=== PATIENT | female | born 1990 | race Caucasian/White ===

== ENCOUNTER 2021-10-17 01:14 | Emergency (ER) | payer OTHER ==
--- OUTSIDE RECORDS SUMMARY | 2021-10-17 01:24 | XMS REPORT | Continuity of Care Document ---
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 ONCE, Stop date: 11/08/16 13:54:00 CDT rocuronium No Route: IV, M emoria (ANES) 11-08 Drug form: l 18:54: INJ, ONCE, Stop date: 11/08/16 13:54:00 CDT propofol No Route: IV, Mem oria (ANES) 11-08 Drug form: l 18:54: INJ, ONCE, Stop date: 11/08/16 13:54:00 CDT ondansetron No Route: IV, Memoria (ANES) 11-08 Drug form: l 18:54: INJ, ONCE, Stop date: 11/08/16 13:54:00 CDT dexamethaso No Route: IV, Memoria ne (ANES) 11-08 Drug form: l 18:54: INJ, ONCE, Stop date: 11/08/16 13:54:00 CDT lidocaine No Route: IV, Me moria (ANES) 11-08 Drug form: l 18:54: INJ, ONCE, Stop date: 11/08/16 13:54:00 CDT famotidine No Route: IV, M emoria (ANES) 11-08 Drug form: l 18:54: INJ, ONCE, Stop date: 11/08/16 13:54:00 CDT neostigmine No Route: IV, Memoria (ANES) 11-08 Drug form: l 18:54: INJ, ONCE, Stop date: 11/08/16 13:54:00 CDT glycopyrrol No Route: IV, Memoria ate (ANES) 11-08 Drug form: l 18:54: INJ, ONCE, Stop date: 11/08/16 13:54:00 CDT ketOROLAC No IV, ONCE Mitul fernando (ANES) 11-08 l 18:54: 00 ceFAZolin No Route: IV, Me moria (ANES) 11-08 Drug form: l 18:50: INJ, ONCE, Stop date: 11/08/16 13:50:00 CDT Dilaudid No Route: IV, Mem oria (ANES) 11-08 Drug form: l 18:50: INJ, ONCE, Stop date: 11/08/16 13:50:00 CDT Insulin, No Notes: Memoria Aspart, 11-08 Roll in l Human 18:41: palms of hands gently; Do not shake vigorously . (Same as: NovoLOG) "single patient use only" WASTE: F/P - Black; E - Municipal Trash Bin Stable for 28 days at room temperatur e. Expires in days from ____Date Racepinephr No Notes: Mitul fernando ine 11-08 (racepinep l 18:41: hrine Teo 00 *2.25% inh 0.5ml SOLN) (Same as:S2) Ondansetron No Notes: Mitul fernando - (Same as: l 18:41: Zofran) MEDICATION WASTE Product Size: 4 mg Product Wasted: ___ mg Dexamethaso No Notes: Mitul fernando ne - Concentrat l 18:41: ion: Teo 00 4mg/ml Promethazin No 6.25 mg, Me moria e -04 25 mL, l 18:41: Route: [place] 00 IVPB, Drug form: SOLN, ONCE, Dosing Weight 113, kg, PRN Nausea & Vomiting, Start date: 11/08/16 13:41:00 CDT Albuterol No Notes: SEE Me moria 0.83 MG/ML - RT l Inhalant 18:41: DOCUMENTAT Her aldrich Solution 00 ION (Same as: Proventil) Diphenhydra No Notes: Mitul fernando mine 11-08 (Same as: l 18:41: Benadryl) Hydromorpho No Notes: Mitul fernando ne - Same as: l 18:41: Dilaudid Oxycodone No Notes: Memori a - (Same as: l 18:41: Roxicodone ) Flumazenil No Notes: Memor ia -04 (Same as: l 18:41: Romazicon) Ephedrine No Notes: Memori a 4-04 final l 18:41: concentrat Teo 00 ion 5 mg/mL Naloxone No Notes: Memoria 4-04 Same as l 18:41: Narcan Atropine No Notes: Mem oria - MEDICATION l 18:41: WASTE Teo 00 Product Size: 0.4 mg Product Wasted: ___ mg Acetaminoph No Notes: Max Memoria en 11-08 acetaminop l 18:41: hen 4000 [place] 00 mg/day (4 gm/day). (Same as: Tylenol Extra Strength) Morphine No Notes: Memoria 11-08 (Same l 18:41: as:MORPhin Teo 00 e Sulfate) Hydralazine No Notes: Mitul fernando 11-08 (Same as: l 18:41: Apresoline [place] 00 ) Push over 5 minutes Labetalol No 10 mg, 2 Mitul fernando -04 mL, Route: l 18:41: IVP, Drug form: INJ, Q5Min, Dosing Weight 113, kg, PRN Elevated BP, Start date: 11/08/16 13:41:00 CDT, Duration: 5 doses or times, Stop date: Limited # of times Metoprolol No Notes: Memor ia 11-08 (Same as: l 18:41: Lopressor) [place] Push over 2 minutes LR 1000 mL No Route: IV, M emoria INJ (ANES) 11-08 Total l 17:51: Volume: Teo 00 1,000, Start date: 11/08/16 12:51:00 CDT, Stop date: 11/08/16 13:51:00 CDT Lidocaine No 5 mg, Memoria Hydrochlori 11-08 Route: l de 10 MG/ML 16:21: INTRADERM, [place] Injectable Dosing Solution Weight 113, kg, ONCE, Start date: 11/08/16 11:21:00 CDT, Stop date: 11/08/16 11:21:00 CDT Lactated No 1,000 mL, Mitul fernando Ringers 11-08 Rate: 25, l 1,000 mL 16:21: Route: IV, Her aldrich 00 Dosing Weight 113 kg, Total Volume: 1,000, Start date: 11/08/16 11:21:00 CDT, Duration: 30 day, Stop date: 12/08/16 11:20:00 CDT Cefazolin Yes Notes: Memori a 11-08 Same as: l 15:41: Ancef [place] Immunizations Ordered Immunization Filled Immunization Date Status Commen ts Source Name Name influenza virus 2016-09-20 Completed [facility] vaccine, inactivated 16:19:00 Herm gricelda influenza virus 2012-09-23 Completed [facility] vaccine, inactivated 00:29:00 Herm gricelda Vital Signs Vital Name Observation Time Observation Value Comments Source Heart Rate 2020-11-25 08:37:00 [facility] [place] Respitory Rate 2020-11-25 08:37:00 Memori al [place] Systolic (mm Hg) 2020-11-25 08:37:00 Mitul rial [place] Diastolic (mm Hg) 2020-11-25 08:37:00 Mem orial [place] Temperature Oral (F) 2020-11-25 08:37:00 98.0 F [facility] [place] Heart Rate 2020-11-25 05:36:00 [facility] [place] Respitory Rate 2020-11-25 05:36:00 Memori al [place] Systolic (mm Hg) 2020-11-25 05:36:00 Mitul rial [place] Diastolic (mm Hg) 2020-11-25 05:36:00 Mem orial [place] Weight 2020-11-25 02:54:00 [facility] [place] Systolic (mm Hg) 2020-11-25 02:54:00 Mitul rial Toe Diastolic (mm Hg) 2020-11-25 02:54:00 Mem orial [place] Heart Rate 2020-11-25 02:54:00 [facility] [place] Respitory Rate 2020-11-25 02:54:00 Memori al [place] Heart Rate 2020-06-28 07:11:00 [facility] [place] Respitory Rate 2020-06-28 07:11:00 Memori al [place] Systolic (mm Hg) 2020-06-28 07:11:00 Mitul rial [place] Diastolic (mm Hg) 2020-06-28 07:11:00 Mem orial [place] Weight 2020-06-28 03:08:00 [facility] [place] Systolic (mm Hg) 2020-06-28 03:08:00 Mitul rial Teo Diastolic (mm Hg) 2020-06-28 03:08:00 Mem orial [place] Heart Rate 2020-06-28 03:08:00 [facility] [place] Respitory Rate 2020-06-28 03:08:00 Memori al [place] Heart Rate 2020-06-14 03:39:00 [facility] [place] Respitory Rate 2020-06-14 03:39:00 Memori al [place] Systolic (mm Hg) 2020-06-14 03:39:00 Mitul rial Teo Diastolic (mm Hg) 2020-06-14 03:39:00 Mem orial [place] Weight 2020-06-14 00:15:00 [facility] [place] Systolic (mm Hg) 2020-06-14 00:15:00 Mitul rial [place] Diastolic (mm Hg) 2020-06-14 00:15:00 Mem orial [place] Heart Rate 2020-06-14 00:15:00 [facility] [place] Respitory Rate 2020-06-14 00:15:00 Memori al [place] Respitory Rate 2019-04-15 11:20:00 Memori al [place] Systolic (mm Hg) 2019-04-15 11:20:00 Mitul rial [place] Diastolic (mm Hg) 2019-04-15 11:20:00 Mem orial [place] Respitory Rate 2019-04-15 10:12:00 Memori al [place] Systolic (mm Hg) 2019-04-15 10:12:00 Mitul rial Te[place] Diastolic (mm Hg) 2019-04-15 10:12:00 Mem orial [place] Systolic (mm Hg) 2019-04-15 03:54:00 Mitul rial Teo Diastolic (mm Hg) 2019-04-15 03:54:00 Mem orial [place] Heart Rate 2019-04-15 03:54:00 [facility] [place] Respitory Rate 2019-04-15 03:54:00 Memori al [place] Weight 2019-04-15 03:54:00 [facility] [place] Height 2019-03-10 21:33:00 172.72 cm [facility] BMI Calculated 2019-03-10 21:33:00 Memori al [place] Weight 2019-03-10 21:33:00 [facility] [place] Systolic (mm Hg) 2019-03-10 21:33:00 Mitul rial Teo Diastolic (mm Hg) 2019-03-10 21:33:00 Mem orial [place] Respitory Rate 2019-03-10 21:33:00 Memori al [place] Heart Rate 2019-03-10 21:33:00 [facility] [place] Weight 2019-03-06 05:36:00 [facility] [place] BMI Calculated 2019-03-06 05:36:00 Memori al [place] Height 2019-03-06 05:36:00 172.72 cm [facility] [place] Respitory Rate 2019-03-06 05:36:00 Memori al [place] Heart Rate 2019-03-06 05:36:00 [facility] [place] Systolic (mm Hg) 2019-03-06 05:36:00 Mitul rial [place] Diastolic (mm Hg) 2019-03-06 05:36:00 Mem orial [place] Temperature Oral (F) 2019-03-04 14:23:00 98.3 F [facility] [place] Heart Rate 2019-03-04 14:23:00 [facility] [place] Systolic (mm Hg) 2019-03-04 14:23:00 Mitul rial [place] Diastolic (mm Hg) 2019-03-04 14:23:00 Mem orial [place] Respitory Rate 2019-03-04 14:23:00 Memori al [place] Systolic (mm Hg) 2019-03-04 11:00:00 Mitul rial Teo Diastolic (mm Hg) 2019-03-04 11:00:00 Mem orial [place] Heart Rate 2019-03-04 11:00:00 [facility] [place] Systolic (mm Hg) 2019-03-04 09:38:00 Mitul rial [place] Diastolic (mm Hg) 2019-03-04 09:38:00 Mem orial [place] Heart Rate 2019-03-04 09:38:00 [facility] [place] Temperature Oral (F) 2019-03-04 09:38:00 98.7 F [facility] [place] Temperature Oral (F) 2019-03-04 05:07:00 99.0 F [facility] [place] Respitory Rate 2019-03-03 20:54:00 Memori al [place] Respitory Rate 2019-03-03 19:27:00 Memori al [place] Weight 2019-02-27 09:59:00 [facility] [place] BMI Calculated 2019-02-27 09:59:00 Memori al [place] Height 2019-02-27 09:59:00 172.72 cm [facility] [place] BMI Calculated 2019-02-27 04:18:00 Memori al [place] Weight 2019-02-27 04:18:00 [facility] [place] Height 2019-02-27 04:18:00 172.72 cm [facility] [place] Systolic (mm Hg) 2018-10-29 08:22:00 Mitul rial [place] Diastolic (mm Hg) 2018-10-29 08:22:00 Mem orial [place] Temperature Oral (F) 2018-10-29 08:22:00 97.8 F [facility] [place] Systolic (mm Hg) 2018-10-29 05:30:00 Mitul rial Teo Diastolic (mm Hg) 2018-10-29 05:30:00 Mem orial [place] Weight 2018-10-29 00:14:00 [facility] [place] Height 2018-10-29 00:14:00 172.72 cm [facility] [place] BMI Calculated 2018-10-29 00:14:00 Memori al [place] Respitory Rate 2018-10-29 00:14:00 Memori al [place] Heart Rate 2018-10-29 00:14:00 [facility] [place] Systolic (mm Hg) 2018-10-29 00:14:00 Mitul rial [place] Diastolic (mm Hg) 2018-10-29 00:14:00 Mem orial [place] Systolic (mm Hg) 2018-08-29 09:37:00 Mitul rial [place] Diastolic (mm Hg) 2018-08-29 09:37:00 Mem orial [place] Respitory Rate 2018-08-29 09:37:00 Memori al [place] Respitory Rate 2018-08-29 08:02:00 Memori al [place] Systolic (mm Hg) 2018-08-29 08:02:00 Mitul rial [place] Diastolic (mm Hg) 2018-08-29 08:02:00 Mem orial [place] Systolic (mm Hg) 2018-08-29 05:45:00 Mitul rial [place] Diastolic (mm Hg) 2018-08-29 05:45:00 Mem orial [place] Respitory Rate 2018-08-29 05:45:00 Memori al [place] Temperature Oral (F) 2018-08-29 04:57:00 98.1 F [facility] [place] Heart Rate 2018-08-29 04:57:00 [facility] [place] Height 2018-08-29 04:57:00 172.72 cm [facility] [place] Weight 2018-08-29 04:57:00 [facility] [place] BMI Calculated 2018-08-29 04:57:00 Memori al [place] Weight 2018-02-22 20:43:00 [facility] [place] BMI Calculated 2018-02-22 20:43:00 Memori al [place] Height 2018-02-22 20:43:00 172.72 cm [facility] [place] Systolic (mm Hg) 2018-02-22 20:43:00 Mitul rial [place] Diastolic (mm Hg) 2018-02-22 20:43:00 Mem orial [place] Heart Rate 2018-02-22 20:43:00 [facility] [place] Respitory Rate 2018-02-22 20:43:00 Memori al [place] Temperature Oral (F) 2017-08-05 07:39:00 98.4 F [facility] [place] Respitory Rate 2017-08-05 07:39:00 Memori al [place] Systolic (mm Hg) 2017-08-05 07:39:00 Mitul rial Teo Diastolic (mm Hg) 2017-08-05 07:39:00 Mem orial [place] Heart Rate 2017-08-05 07:39:00 [facility] [place] Height 2017-08-05 04:14:00 172.72 cm [facility] [place] Temperature Oral (F) 2017-08-05 04:14:00 98.3 F [facility] [place] BMI Calculated 2017-08-05 04:14:00 Mem[facility] al [place] Weight 2017-08-05 04:14:00 [facility] [place] Heart Rate 2017-08-05 04:14:00 [facility] [place] Respitory Rate 2017-08-05 04:14:00 Memori al [place] Systolic (mm Hg) 2017-08-05 04:14:00 Mitul rial [place] Diastolic (mm Hg) 2017-08-05 04:14:00 Mem orial [place] Systolic (mm Hg) 2017-02-23 01:09:00 Mitul rial [place] Diastolic (mm Hg) 2017-02-23 01:09:00 Mem orial [place] Respitory Rate 2017-02-23 01:09:00 Memori al [place] Heart Rate 2017-02-23 01:09:00 [facility] [place] BMI Calculated 2017-02-22 23:13:00 Mem[facility] al [place] Weight 2017-02-22 23:13:00 [facility] [place] Systolic (mm Hg) 2017-02-22 23:13:00 Mitul rial [place] Diastolic (mm Hg) 2017-02-22 23:13:00 Mem orial [place] Heart Rate 2017-02-22 23:13:00 [facility] [place] Respitory Rate 2017-02-22 23:13:00 Memori al [place] Height 2017-02-22 23:13:00 172.72 cm [facility] [place] Systolic (mm Hg) 2016-11-08 20:50:00 Mitul rial [place] Diastolic (mm Hg) 2016-11-08 20:50:00 Mem orial [place] Respitory Rate 2016-11-08 20:50:00 Memori al [place] Systolic (mm Hg) 2016-11-08 20:40:00 Mitul rial [place] Diastolic (mm Hg) 2016-11-08 20:40:00 Mem orial [place] Respitory Rate 2016-11-08 20:40:00 Memori al [place] Systolic (mm Hg) 2016-11-08 20:30:00 Mitul rial [place] Diastolic (mm Hg) 2016-11-08 20:30:00 Mem orial [place] Respitory Rate 2016-11-08 20:30:00 Memori al Te[place] Weight 2016-11-04 17:45:00 [facility] Teo BMI Calculated 2016-11-04 17:45:00 Memori al [place] Height 2016-11-04 17:45:00 172.72 cm [facility] Procedures Procedure Date / Time Performed Performing Clinician [facility] e section [facility] Hugh n Tub[facility] Cholecyst[facility] [place] Plan of Care Planned Activity Planned Date Details Comments Source Future Scheduled 2021-06-16 COVID-19 VACCINE (1) Met [facility] Test 06:57:56 [code = COVID-19 VACCINE (1)] Future Scheduled 2021-06-16 [facility] Test 06:57:56 malignant neoplasm of cervix (procedure) [code = 603205419] Future Scheduled 2021-06-16 [facility]FLUENZA VACCINE [facility] Test 06:57:56 [code = INFLUENZA VACCINE] Future Scheduled 2021-04-07 INFLUENZA VACCINE (#1) [facility] Test 00:[facility]:00 [code = INFLUENZA Medical Ce nter VACCINE (#1)] Future Scheduled 2020-08-[address] [facility] - Test 00:00:00 (12+) [code = Medical Center DEPRESSION SCREENING (12+)] Future Scheduled 2020-04-07 INFLUENZA VACCINE (#1) [facility] - Test 00:00:00 [code = INFLUENZA Medical Ce nter VACCINE (#1)] Future Scheduled [address] [facility] - Test 00:00:00 malignant neoplasm of Medica l Center cervix (procedure) [code = 040653622] Future Scheduled [address] [facility] - Test 00:00:00 malignant neoplasm of Medica l Center cervix (procedure) [code = 331969554] Future Scheduled [address] [facility] - Test 00:00:00 (procedure) [code = Medical Center 56594299] Future Scheduled [address] [facility] - Test 00:00:00 (procedure) [code = Medical Center 27070270] Future Scheduled 2008 DTAP/TDAP/TD VACCINES [facility] Test 00:00:00 (1 - Tdap) [code = Medical C enter DTAP/TDAP/TD VACCINES (1 - Tdap)] Future Scheduled 2007-12-27 HEPATITIS C SCREENING [facility] - Test 00:00:00 [code = HEPATITIS C Medical Center SCREENING] Future Scheduled 2001 COVID-19 VACCINE (1) [facility] - Test 00:00:00 [code = COVID-[address] VACCINE (1)] Future Scheduled 1995-12-[address] [facility] - Test 00:00:00 0-64 YRS (1 of 2 - Medical C enter PPSV23) [code = PNEUMOCOCCAL VACCINE 0-64 YRS (1 of 2 - PPSV23)] Future Scheduled 1995-12-[address] [facility] - Test 00:00:00 0-64 YRS (1 of 1 - Medical C enter PPSV23) [code = PNEUMOCOCCAL VACCINE 0-64 YRS (1 of 1 - PPSV23)] Encounters Start End Encounter Admission Attending Care Care Encounter Source Date/Time Date/Time Type Type Clinicians Facility Department ID 2021-05-12 Inpatient HCATB ALEXA [id number] [facility] 07:53:00 [id number] [facility] [place] 2020-04-16 Inpatient HCACR ALEXA [id number] [facility] 09:21:00 [id number] [facility] 2021-05-12 2021-05-12 Emergency EM Miko CASPER LIU [id number] [facility] 07:53:00 08:54:[address] [facility] are [place] 2021-04-03 2021-04-03 Emergency EM CASPER Alberto ALEXA [id number] [facility] 01:22:00 04:39:00 Marli [id number] [facility] [place] 2020-11-25 2020-11-25 Emergency nullFlavo [facility] [id number] Memoria 02:22:15 08:38:00 antonio Bruce The 12 [facility] 2020-11-24 2020-11-25 Emergency E BEAUCHAMP, MHTW MHTW [id number] MHTW 21:22:00 03:38:00 ALEXIS 2020-06-28 2020-06-28 Emergency nullFlavo [facility] [id number] Memoria 02:59:03 12:22:00 antonio Bruce The 11 [facility] 2020-06-27 2020-06-28 Emergency E ANI, MHTW MHTW [id number] MHTW 20:59:00 06:22:00 ALEXANDRE 2020-06-14 2020-06-14 Emergency [facility] [id number] Memoria 00:09:53 03:41:00 antonio Bruce The 10 [facility] 2019-04-15 2019-04-15 Emergency [facility]Fl[facility] [id number] Memoria 03:40:37 12:21:00 antonio Bruce The 09 [facility] 2019-04-14 2019-04-14 Emergency E MHTW MHTW [id number] MHTW 22:40:00 22:40:00 2019-03-10 2019-03-10 Emergency [facility]Flavo [facility] [id number] Memoria 21:16:54 22:49:00 antonio Bruce The 08 [facility] 2019-03-10 2019-03-10 Emergency E MHTW MHTW [id number] MHTW 16:16:00 16:16:00 2019-03-06 2019-03-06 Emergency [facility]Flavo [facility] [id number] Memoria 05:34:40 05:58:00 antonio Bruce The 07 [facility] 2019-03-06 2019-03-06 Emergency E MHTW MHTW [id number] MHTW 00:34:00 00:34:00 2019-02-27 2019-03-04 Inpatient [facility] [id number] Memoria 04:16:52 17:54:00 antonio Bruce The [facility] 2019-02-27 2019-02-27 Inpatient E MHTW MED [id number] MHTW 03:31:00 03:31:00 2018-10-29 2018-10-29 Emergency [facility] [id number] [facility]oria 00:03:00 08:31:00 antonio Bruce The [facility] 2018-08-29 2018-08-29 Emergency [facility] [id number] [facility]oria 04:55:00 09:40:00 antonio Bruce The [facility] 2018-02-22 2018-02-22 Emergency [facility] [id number] Memoria 20:43:00 21:26:00 antonio Bruce The [facility] 2017-08-05 2017-08-05 Emergency [facility]Fl[facility] [id number] Memoria 04:03:00 07:56:00 antonio Bruce The [facility] 2017-02-22 2017-02-23 Emergency [facility] [id number] Memoria 23:10:00 01:11:00 antonio Bruce The [facility] 2016-11-08 2016-11-08 Day [facility]Flavo [facility] [id number] [facility]oria 16:04:00 21:45:00 Surgery antonio Bruce The [facility] Results Test Description Test Time Test Comments Results Result [facility] e Comments - XR ELBOW 3 + V 2021-05-12 RT 08:47:00 [facility] SMALL : 1990 Sex: F Juan tient Name: NINI SMALL Unit No: [id number] EXAMS: CPT: [id number] XR ELBOW 3 + V RT [id number] EXAM: 4 VIEWS RIGHT ELBOW HISTORY: 30-year-old female with right elbow pain. COMPARISON: None FINDINGS: No fracture identified. Alignment is anatomic. No significant degenerative findings. No significant soft tissue abnormality. No significant joint effusion. IMPRESSION: No acute findings of the right elbow. at 0847 Reported and signed by: KENNETH NOEL DO CC: Iliana Crouch MD Technologist: Nasir Banks Fluoro Time: DAP (Gy m2): Air Kerma (mGy): Trscr Dt/Tm: 05/12/2021 (0847) by:[email or web address] Orig Print D/T: S: 05/12/2021 (0850) BATCH NO: N/A Name: NINI SMALL [facility] [place] Phys: Iliana Casas [address] : 1990 Age: 30 Sex: F [place] Loc: T.ERS Exam Date: 05/12/2021 Status: REG ER PH: FAX: PAGE 1 Signed Report Covid 19 InHouse NTX 2021-04-05 08:57:00 Test Item Value Reference Range Interpretation Comme nts Covid 19 InHouse NTX (test Positive Negative A C ritical Value reported toFirst Name: code = [id number]) Emily carlin Name: DINESH Martinez/ERSRESULTS READ BACK AND V ERIFIEDby INFCE, on 04/04/21, @ 184 0.by [email or web address], on 04/05/2021 @ 08 56 This test was performed using the [employer] SmartTM COVID-19 PCRass ay. This test was developed and i ts performancechar acteristics were determined by [facility]. Thi s test has notbeen FDA cleared or appr ankush. This test is authorized by t heFDA under Emergency Use Authorizati on(EUA). The EUA willremain in e ffect unless it is terminated or r evoked by FDA . Testing parameters have not been validated for screeningasympt omatic patients. This test was valida lai according to the FDA's guidanced ocument "Policy for Diagnostics elisabeth ting in LaboratoriesCer tified to Perform High Complexity Test ing under CLIA". First test? YesEmployed in Healthcare? NoSymptomatic as defined by CDC? YesDate of Symptom Onset: [id number] due to COVID? NoIn ICU due to COVID? NoResident in a congregate care setting? No? NoAge at collection: [id number] 05:41:00 Test Item Value Reference Range Interpretation Comments Glucose Lvl (test code = Glucose Lvl) 119 70-99 [facility] [id number] 05:41:00 Test Item Value Reference Range Interpretation Comments BUN (test code = BUN) 12 7-22 [facility] [id number] 05:41:00 Test Item Value Reference Range Interpretation Comments Creatinine Lvl (test code = Creatinine 0.82 0.50-1.40 Lvl) [facility] [id number] 05:41:00 Test Item Value Reference Range Interpretation Comments Sodium Lvl (test code = Sodium Lvl) 139 135-145 [facility] [id number] 05:41:00 Test Item Value Reference Range Interpretation Comments Potassium Lvl (test code = Potassium 3.9 3.5-5.1 Lvl) [facility] [id number] 05:41:00 Test Item Value Reference Range Interpretation Comments Chloride Lvl (test code = Chloride Lvl) 110 95-109 [facility] [id number] 05:41:00 Test Item Value Reference Range Interpretation Comments CO2 (test code = CO2) 23 24-32 [facility] [id number] 05:41:00 Test Item Value Reference Range Interpretation Comments Calcium Lvl (test code = Calcium Lvl) 8.5 8.5-10.5 [facility] [id number] 05:41:00 Test Item Value Reference Range Interpretation Comments Total Protein (test code = Total 7.2 6.4-8.4 Protein) [place] [id number] 05:41:00 Test Item Value Reference Range Interpretation Comments Albumin Lvl (test code = Albumin Lvl) 3.6 3.5-5.0 [place] [id number] 05:41:00 Test Item Value Reference Range Interpretation Comments ALT (test code = ALT) 24 See_Comment [Auto mated message] The system which ge nerated this result transmit lai reference range : <=65. The reference range was not used to interpr et this result as sam l/abnormal. [place] [id number] 05:41:00 Test Item Value Reference Range Interpretation Comments AST (test code = AST) 14 See_Comment [Auto mated message] The system which ge nerated this result transmit lai reference range : <=37. The reference range was not used to interpr et this result as sam l/abnormal. [place] [id number] 05:41:00 Test Item Value Reference Range Interpretation Comments Alk Phos (test code = Alk Phos) 89 39-136 [place] [id number] 05:41:00 Test Item Value Reference Range Interpretation Comments Bili Total (test code = Bili Total) 0.2 0.2-1.3 [place] [id number] 05:41:00 Test Item Value Reference Range Interpretation Comments AGAP (test code = AGAP) 9.9 10.0-20.0 [place] [id number] 05:41:00 Test Item Value Reference Range Interpretation Comments B/C Ratio (test code = B/C Ratio) 15 1 6-25 [place] 478251-04-21 05:41:00 Test Item Value Reference Range Interpretation Comments Globulin (test code = Globulin) 3.6 2.7-4.2 [place] 478251-04-21 05:41:00 Test Item Value Reference Range Interpretation Comments A/G Ratio (test code = A/G Ratio) 1.0 1 0.7-1.6 [place] 478251-04-21 05:41:00 Test Item Value Reference Range Interpretation Comments eGFR (test code = eGFR) 96 [id number] 05:41:00 Test Item Value Reference Range Interpretation Comments WBC (test code = WBC) 11.8 3.7-10.4 [facility]27 05:41:00 Test Item Value Reference Range Interpretation Comments RBC (test code = RBC) 4.66 4.20-5.40 [place] 567271-04-21 05:41:00 Test Item Value Reference Range Interpretation Comments Hgb (test code = Hgb) 12.9 12.0-16.0 [place] 567271-04-21 05:41:00 Test Item Value Reference Range Interpretation Comments Hct (test code = Hct) 39.9 36.0-48.0 [facility]AwtfcwvKAQULAFURS5323-87-28 05:41:00 Test Item Value Reference Range Interpretation Comments MCV (test code = MCV) 85.8 80.0-98.0 [place] 567271-04-21 05:41:00 Test Item Value Reference Range Interpretation Comments MCH (test code = MCH) 27.7 pg 27.0-31.0 [facility] HospitalNpvtfrrUXHJECLRYJ9970-32-68 05:41:00 Test Item Value Reference Range Interpretation Comments MCHC (test code = MCHC) 32.3 32.0-36.0 [facility] HospitalRonmbcfVGTXSMQWXX3995-11-38 05:41:00 Test Item Value Reference Range Interpretation Comments RDW (test code = RDW) 14.1 11.5-14.5 [facility] HospitalIxwxgmyMBQLUAAPKN8906-12-96 05:41:00 Test Item Value Reference Range Interpretation Comments Platelet (test code = Platelet) 311 133-450 [facility] HospitalMlijzcfRMWLYHYTTW2286-01-72 05:41:00 Test Item Value Reference Range Interpretation Comments MPV (test code = MPV) 9.1 7.4-10.4 [place] 567271-04-21 05:41:00 Test Item Value Reference Range Interpretation Comments Segs (test code = Segs) 55.1 45.0-75.0 [facility] HospitalTndpjebRXGCZZILKV3342-92-53 05:41:00 Test Item Value Reference Range Interpretation Comments Lymphocytes (test code = Lymphocytes) 36.6 20.0-40.0 [facility] HospitalQwwnfdhJVVODZMBMO6514-56-08 05:41:00 Test Item Value Reference Range Interpretation Comments Monocytes (test code = Monocytes) 5.0 2.0-12.0 [place] 567271-04-21 05:41:00 Test Item Value Reference Range Interpretation Comments Eosinophils (test code = 2.6 See_Comment [A utomated message] The Eosinophils) system which ge nerated this result tra nsmitted reference range : <=4.0. The reference r andres was not used to int erpret this result as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 code = TRACE >0 /HPF NONE-FEW BACU) UA SQUAMOUS CELLS (test RARE >0 /HPF NONE-SQepi code = SQU) UA MUCUS (test code = RARE /LPF NONE MUCU) UR HCG [id number] 21:16:00 Test Item Value Reference Range Interpretation Comments UR HCG QUAL (test NEGATIVE NEG Very dilut e urines with a code = HCGQLU) low specific gravity may notcontain repr esentative levels of hCG. URINALYSIS [id number] 21:12:00 Test Item Value Reference Range Interpretation Comments UA COLOR (test code = COLU) DESCRIPT YELLOW UA APPEARANCE (test code = APPU) DESCRIPT CLEAR UA GLUCOSE DIPSTICK (test code = mg/dL (NEG) 0 DGLUU) UA BILIRUBIN DIPSTICK (test code = mg/dL (NEG) 0 BILU) UA KETONE DIPSTICK (test code = mg/dL (NEG) 0 KETU) UA SPECIFIC GRAVITY (test code = SG 1.001-1.035 SGU) UA BLOOD DIPSTICK (test code = NEY) mg/DL (NEG) 0 UA PH DIPSTICK (test code = ALINA) pH UNITS 4.6-8.0 UA PROTEIN DIPSTICK (test code = mg/dL <30 (1+) PROU) UA UROBILINIOGEN DIPSTICK (test mg/dL <2.0 (1+) code = URO) UA NITRITE DIPSTICK (test code = SCREEN NEG DIANA) UA LEUKOCYTE ESTERASE DIPSTICK Leuk/mcL (NEG) 0 (test code = LEUU) UA RBC (test code = RBCU) #RBC/HPF 0-3 UR HCG [id number] 21:12:00 Test Item Value Reference Range Interpretation Comments UR HCG QUAL (test NEGATIVE NEG Very dilut e urines with a code = HCGQLU) low specific gravity may notcontain repr esentative levels of hCG. AG STREP GROUP A (THROAT)2019-04-29 20:56:00 Test Item Value Reference Range Interpretation Comments AG STREP GROUP A NEG SCREEN NEG STREP A NTIGEN (THROAT) (test SCREENING:Ant igen code = STREPA) screening elisabeth t; suggest confirmation by culture.INTERPR ETATION OF STREP ANTIGEN R ESULTS:WHEN STREP GROUP A A NTIGEN IS NOT DETECTED, T HE NEGATIVERESULT DOES NOT RULE OUT THE MD ESENCE OF STREP GROUP A.W HEN STREP GROUP A ANTIGEN IS DETECTED, THE P OSITIVE RESULTIS SIGNIF ICANT. NEGATIVE RESULT S REFLEX A CULTURE. FORNE GATIVE RESULTS A CULTU RE IS IN PROGRESS, RESUL T TO FOLLOW. TOBRAMYCIN:SUSC:PT:ISOLATE:ORDQN:[id number] 07:12:00 Test Item Value Reference Range Interpretation Comments Culture: Urine (test >100,000 CFU/mL code = Culture: Escherichia coli <10,000 Urine) CFU/mL [facility]USC:PT:ISOLATE:ORDQN:[id number] 07:12:00 Test Item Value Reference Range Interpretation Comments Escherichia coli (test code Escherichia coli = Escherichia coli) [facility] AND [id number] 07:12:00 Test Item Value Reference Range Interpretation Comments UA Turbidity (test code = Clear (04/15/19 2:12 UA Turbidity) AM) [facility] AND [id number] 07:12:00 Test Item Value Reference Range Interpretation Comments UA Spec Grav (test code = UA Spec 1.028 1 Grav) [facility] AND [id number] 07:12:00 Test Item Value Reference Range Interpretation Comments UA pH (test code = UA pH) 6.0 1 5.0-8.0 [facility] AND [id number] 07:12:00 Test Item Value Reference Range Interpretation Comments UA Protein (test code = UA Negative mg/dL Protein) [facility] AND [id number] 07:12:00 Test Item Value Reference Range Interpretation Comments UA Glucose (test code = UA Negative mg/dL Glucose) [facility] AND [id number] 07:12:00 Test Item Value Reference Range Interpretation Comments UA Ketones (test code = UA Negative mg/dL Ketones) [facility] AND [id number] 07:12:00 Test Item Value Reference Range Interpretation Comments UA Bili (test code = Negative *NA*(04/15/19 UA Bili) 2:12 AM) [facility] AND [id number] 07:12:00 Test Item Value Reference Range Interpretation Comments UA Blood (test code = Small *ABN*(04/15/19 UA Blood) 2:12 AM) [facility] AND [id number] 07:12:00 Test Item Value Reference Range Interpretation Comments UA Nitrite (test code Negative (04/15/19 2:12 = UA Nitrite) AM) [facility] AND [id number] 07:12:00 Test Item Value Reference Range Interpretation Comments UA Leuk Est (test code Small *ABN*(04/15/19 2:12 = UA Leuk Est) AM) [facility] AND [id number] 07:12:00 Test Item Value Reference Range Interpretation Comments UA Sq Epi (test code = UA Sq Occasional /LPF Epi) [facility] AND [id number] 07:12:00 Test Item Value Reference Range Interpretation Comments UA WBC (test code = 25 See_Comment [Automa lai message] The UA WBC) system which ge nerated this result transmit lai reference range : <=5. The reference range was not used to interpr et this result as sam l/abnormal. [facility] AND [id number] 07:12:00 Test Item Value Reference Range Interpretation Comments UA RBC (test code = 19 See_Comment [Automa lai message] The UA RBC) system which ge nerated this result transmit lai reference range : <=2. The reference range was not used to interpr et this result as sam l/abnormal. [facility] AND [id number] 07:12:00 Test Item Value Reference Range Interpretation Comments UA Bacteria (test code = UA Occasional /HPF Bacteria) [facility] AND [id number] 07:12:00 Test Item Value Reference Range Interpretation Comments UA Mucus (test code = UA Mucus) Moderate /LPF [facility] AND [id number] 07:12:00 Test Item Value Reference Range Interpretation Comments UA Color (test code = UA Color) YELLOW [facility] AND [id number] 07:12:00 Test Item Value Reference Range Interpretation Comments UA Urobilinogen (test code = UA <=1.0 mg/dL 0.1-1.0 Urobilinogen) [id number] 04:30:00 Test Item Value Reference Range Interpretation Comments S Preg (test code = S Negative *NA*(04/14/19 Preg) 11:30 PM) [facility]CHE[facility] [id number] 04:20:00 Test Item Value Reference Range Interpretation Comments Glucose Lvl (test code = Glucose Lvl) 92 70-99 [facility]2019-09-09 04:20:00 Test Item Value Reference Range Interpretation Comments BUN (test code = BUN) 9 7-22 [facility]2019-09-09 04:20:00 Test Item Value Reference Range Interpretation Comments Creatinine Lvl (test code = Creatinine 0.84 0.50-1.40 Lvl) [facility]2019-09-09 04:20:00 Test Item Value Reference Range Interpretation Comments Sodium Lvl (test code = Sodium Lvl) 143 135-145 [place] [id number] 04:20:00 Test Item Value Reference Range Interpretation Comments Potassium Lvl (test code = Potassium 4.2 3.5-5.1 Lvl) [facility]2019-09-09 04:20:00 Test Item Value Reference Range Interpretation Comments Chloride Lvl (test code = Chloride Lvl) 111 95-109 [facility]2019-09-09 04:20:00 Test Item Value Reference Range Interpretation Comments CO2 (test code = CO2) 26 24-32 [facility]2019-09-09 04:20:00 Test Item Value Reference Range Interpretation Comments Calcium Lvl (test code = Calcium Lvl) 9.3 8.5-10.5 [facility]2019-09-09 04:20:00 Test Item Value Reference Range Interpretation Comments Total Protein (test code = Total 7.3 6.4-8.4 Protein) [facility]2019-09-09 04:20:00 Test Item Value Reference Range Interpretation Comments Albumin Lvl (test code = Albumin Lvl) 3.8 3.5-5.0 [facility]2019-09-09 04:20:00 Test Item Value Reference Range Interpretation Comments ALT (test code = ALT) 21 See_Comment [Auto mated message] The system which ge nerated this result transmit lai reference range : <=65. The reference range was not used to interpr et this result as sam l/abnormal. [place] [id number] 04:20:00 Test Item Value Reference Range Interpretation Comments AST (test code = AST) 10 See_Comment [Auto mated message] The system which ge nerated this result transmit lai reference range : <=37. The reference range was not used to interpr et this result as sam l/abnormal. [place] 821429-09-09 04:20:00 Test Item Value Reference Range Interpretation Comments Alk Phos (test code = Alk Phos) 94 39-136 [facility]2019-09-09 04:20:00 Test Item Value Reference Range Interpretation Comments Bili Total (test code = Bili Total) 0.2 0.2-1.3 [facility]2019-09-09 04:20:00 Test Item Value Reference Range Interpretation Comments eGFR (test code = eGFR) 94 [facility]2019-09-09 04:20:00 Test Item Value Reference Range Interpretation Comments AGAP (test code = AGAP) 10.2 10.0-20.0 [facility]2019-09-09 04:20:00 Test Item Value Reference Range Interpretation Comments B/C Ratio (test code = B/C Ratio) 11 1 6-25 [facility]2019-09-09 04:20:00 Test Item Value Reference Range Interpretation Comments Globulin (test code = Globulin) 3.5 2.7-4.2 [facility]2019-09-09 04:20:00 Test Item Value Reference Range Interpretation Comments A/G Ratio (test code = A/G Ratio) 1.1 1 0.7-1.6 [place] 821429-09-09 04:20:00 Test Item Value Reference Range Interpretation Comments Lactic Acid Lvl (test code = Lactic 1.3 0.5-2.2 Acid Lvl) [id number] 04:20:00 Test Item Value Reference Range Interpretation Comments WBC (test code = WBC) 13.4 3.7-10.4 [facility] H[id number] 04:20:00 Test Item Value Reference Range Interpretation Comments RBC (test code = RBC) 4.69 4.20-5.40 [facility] [id number] 04:20:00 Test Item Value Reference Range Interpretation Comments Hgb (test code = Hgb) 12.8 12.0-16.0 [facility] H[id number] 04:20:00 Test Item Value Reference Range Interpretation Comments Hct (test code = Hct) 38.9 36.0-48.0 [facility] H[id number] 04:20:00 Test Item Value Reference Range Interpretation Comments MCV (test code = MCV) 83.0 80.0-98.0 [facility] Hospit[id number] 04:20:00 Test Item Value Reference Range Interpretation Comments MCH (test code = MCH) 27.4 pg 27.0-31.0 [facility] H[id number] 04:20:00 Test Item Value Reference Range Interpretation Comments MCHC (test code = MCHC) 32.9 32.0-36.0 [facility] [id number] 04:20:00 Test Item Value Reference Range Interpretation Comments RDW (test code = RDW) 14.6 11.5-14.5 [facility] H[id number] 04:20:00 Test Item Value Reference Range Interpretation Comments Platelet (test code = Platelet) 325 133-450 [facility] H[id number] 04:20:00 Test Item Value Reference Range Interpretation Comments MPV (test code = MPV) 9.0 7.4-10.4 [facility] [id number] 04:20:00 Test Item Value Reference Range Interpretation Comments Segs (test code = Segs) 64.8 45.0-75.0 [facility] [id number] 04:20:00 Test Item Value Reference Range Interpretation Comments Lymphocytes (test code = Lymphocytes) 27.6 20.0-40.0 [facility] H[id number] 04:20:00 Test Item Value Reference Range Interpretation Comments Monocytes (test code = Monocytes) 5.8 2.0-12.0 [facility] Hos[id number] 04:20:00 Test Item Value Reference Range Interpretation Comments Eosinophils (test code = 1.3 See_Comment [A utomated message] The Eosinophils) system which ge nerated this result tra nsmitted reference range : <=4.0. The reference r andres was not used to int erpret this result as normal/abnormal . [facility] Hos[id number] 04:20:00 Test Item Value Reference Range Interpretation Comments Basophils (test code = 0.5 See_Comment [Aut omated message] The Basophils) system which ge nerated this result tra nsmitted reference range : <=1.0. The reference r andres was not used to int erpret this result as normal/abnormal . [facility] HospitalOnevcxzVCZFVSKUXS7454-12-93 04:20:00 Test Item Value Reference Range Interpretation Comments Neutrophils # (test code = Neutrophils 8.7 1.5-8.1 #) [facility] HospitalVfdhgbjSTODZWZJHA0898-41-37 04:20:00 Test Item Value Reference Range Interpretation Comments Lymphocytes # (test code = Lymphocytes 3.7 1.0-5.5 #) [facility] HospitalIcrhynbTSGAWUOMXT9031-13-26 04:20:00 Test Item Value Reference Range Interpretation Comments Monocytes # (test code 0.8 See_Comment [Aut omated message] The = Monocytes #) system which generated this result tra nsmitted reference range : <=0.8. The reference r andres was not used to int erpret this result as normal/abnormal . [facility] HospitalJwxxsjcKZMOSOSOLG4437-82-00 04:20:00 Test Item Value Reference Range Interpretation Comments Eosinophils # (test code 0.2 See_Comment [A utomated message] The = Eosinophils #) system whic h generated this result tra nsmitted reference range : <=0.5. The reference r andres was not used to int erpret this result as normal/abnormal . [facility] HospitalEumymjjSJLAIRLDNQ6671-74-39 04:20:00 Test Item Value Reference Range Interpretation Comments Basophils # (test code 0.1 See_Comment [Aut omated message] The = Basophils #) system which generated this result tra nsmitted reference range : <=0.2. The reference r andres was not used to int erpret this result as normal/abnormal . [facility]2019-07-29 08:18:00 Test Item Value Reference Range Interpretation Comments B/C Ratio (test code = B/C Ratio) 9 1 6-25 [facility]2019-07-29 08:18:00 Test Item Value Reference Range Interpretation Comments Total Protein (test code = Total 6.3 6.4-8.4 Protein) [facility]2019-07-29 08:18:00 Test Item Value Reference Range Interpretation Comments Albumin Lvl (test code = Albumin Lvl) 3.3 3.5-5.0 [facility]2019-07-29 08:18:00 Test Item Value Reference Range Interpretation Comments ALT (test code = ALT) 26 See_Comment [Auto mated message] The system which ge nerated this result transmit lai reference range : <=65. The reference range was not used to interpr et this result as sam l/abnormal. [facility]2019-07-29 08:18:00 Test Item Value Reference Range Interpretation Comments Calcium Lvl (test code = Calcium Lvl) 8.8 8.5-10.5 [facility]2019-07-29 08:18:00 Test Item Value Reference Range Interpretation Comments Bili Total (test code = Bili Total) 0.3 0.2-1.3 [facility]2019-07-29 08:18:00 Test Item Value Reference Range Interpretation Comments AGAP (test code = AGAP) 12.9 10.0-20.0 [facility]2019-07-29 08:18:00 Test Item Value Reference Range Interpretation Comments Alk Phos (test code = Alk Phos) 65 39-136 [facility]2019-07-29 08:18:00 Test Item Value Reference Range Interpretation Comments AST (test code = AST) 7 See_Comment [Auto mated message] The system which ge nerated this result transmit lai reference range : <=37. The reference range was not used to interpr et this result as sam l/abnormal. [facility]2019-07-29 08:18:00 Test Item Value Reference Range Interpretation Comments Globulin (test code = Globulin) 3.0 2.7-4.2 [facility]2019-07-29 08:18:00 Test Item Value Reference Range Interpretation Comments A/G Ratio (test code = A/G Ratio) 1.1 1 0.7-1.6 [facility]2019-07-29 08:18:00 Test Item Value Reference Range Interpretation Comments BUN (test code = BUN) 6 7-22 [facility]2019-07-29 08:18:00 Test Item Value Reference Range Interpretation Comments Glucose Lvl (test code = Glucose Lvl) 80 70-99 [facility]2019-07-29 08:18:00 Test Item Value Reference Range Interpretation Comments CO2 (test code = CO2) 23 24-32 [facility]2019-07-29 08:18:00 Test Item Value Reference Range Interpretation Comments Sodium Lvl (test code = Sodium Lvl) 141 135-145 [facility]2019-07-29 08:18:00 Test Item Value Reference Range Interpretation Comments Chloride Lvl (test code = Chloride Lvl) 109 95-109 [facility]2019-07-29 08:18:00 Test Item Value Reference Range Interpretation Comments Potassium Lvl (test code = Potassium 3.9 3.5-5.1 Lvl) [facility]2019-07-29 08:18:00 Test Item Value Reference Range Interpretation Comments Creatinine Lvl (test code = Creatinine 0.68 0.50-1.40 Lvl) [facility]2019-07-29 08:18:00 Test Item Value Reference Range Interpretation Comments eGFR (test code = eGFR) 119 [facility] HospitalTfpcxovEHDMTRRVBC9499-00-95 08:18:00 Test Item Value Reference Range Interpretation Comments RDW (test code = RDW) 14.2 11.5-14.5 [facility] HospitalVrhoylcCCWDJTHWQT5493-36-20 08:18:00 Test Item Value Reference Range Interpretation Comments MCHC (test code = MCHC) 33.4 32.0-36.0 [facility] HospitalPrqitrpXKYGIEEWEN8740-00-11 08:18:00 Test Item Value Reference Range Interpretation Comments MCH (test code = MCH) 28.0 pg 27.0-31.0 [facility] HospitalAoctzhyDMNSOFCDVV0585-97-31 08:18:00 Test Item Value Reference Range Interpretation Comments MCV (test code = MCV) 83.8 80.0-98.0 [facility] HospitalBwydlktZGZXTQRDWY3644-21-77 08:18:00 Test Item Value Reference Range Interpretation Comments Hct (test code = Hct) 32.4 36.0-48.0 [facility] HospitalXjehlxdCNKXNLUXAE1086-98-59 08:18:00 Test Item Value Reference Range Interpretation Comments MPV (test code = MPV) 10.2 7.4-10.4 [facility] HospitalWinkbowGNOZXVAYFE2003-91-40 08:18:00 Test Item Value Reference Range Interpretation Comments Platelet (test code = Platelet) 243 133-450 [facility] HospitalOosxyyiHWHBBDILGM3261-54-40 08:18:00 Test Item Value Reference Range Interpretation Comments Hgb (test code = Hgb) 10.8 12.0-16.0 [facility] HospitalAsqqroaAXEWNFLGAS3546-10-07 08:18:00 Test Item Value Reference Range Interpretation Comments RBC (test code = RBC) 3.86 4.20-5.40 [facility] HospitalUdafekuPCFMBUGFAL7292-96-37 08:18:00 Test Item Value Reference Range Interpretation Comments WBC (test code = WBC) 12.1 3.7-10.4 [facility] HospitalMtjxobuDDQCIRICEZ4372-44-10 08:18:00 Test Item Value Reference Range Interpretation Comments Eosinophils # (test code 0.1 See_Comment [A utomated message] The = Eosinophils #) system whic h generated this result tra nsmitted reference range : <=0.5. The reference r andres was not used to int erpret this result as normal/abnormal . [facility] HospitalXesacvlUTBQTGFAMC7980-98-72 08:18:00 Test Item Value Reference Range Interpretation Comments Lymphocytes (test code = Lymphocytes) 29.6 20.0-40.0 [facility] HospitalGaitlauJCYRFXFMEC1820-18-97 08:18:00 Test Item Value Reference Range Interpretation Comments Segs (test code = Segs) 62.9 45.0-75.0 [facility] HospitalUdnqxmqIGLQFAVSNP8778-76-78 08:18:00 Test Item Value Reference Range Interpretation Comments Monocytes # (test code 0.8 See_Comment [Aut omated message] The = Monocytes #) system which generated this result tra nsmitted reference range : <=0.8. The reference r andres was not used to int erpret this result as normal/abnormal . [facility] HospitalGsofmwsQRSUNTSTPO1084-25-55 08:18:00 Test Item Value Reference Range Interpretation Comments Lymphocytes # (test code = Lymphocytes 3.6 1.0-5.5 #) [facility] HospitalOumisymXUYWGFRDIM5382-66-77 08:18:00 Test Item Value Reference Range Interpretation Comments Neutrophils # (test code = Neutrophils 7.6 1.5-8.1 #) [facility] HospitalAwhwvelCRQXRPNQDH6987-87-12 08:18:00 Test Item Value Reference Range Interpretation Comments Basophils (test code = 0.4 See_Comment [Aut omated message] The Basophils) system which ge nerated this result tra nsmitted reference range : <=1.0. The reference r andres was not used to int erpret this result as normal/abnormal . [facility] CenterIpmtfokTTPAVHGTQN7726-86-38 08:18:00 Test Item Value Reference Range Interpretation Comments Eosinophils (test code = 0.4 See_Comment [A utomated message] The Eosinophils) system which ge nerated this result tra nsmitted reference range : <=4.0. The reference r andres was not used to int erpret this result as normal/abnormal . [facility] CenterKtxcbxyQIIWHUUJJJ3568-65-58 08:18:00 Test Item Value Reference Range Interpretation Comments Monocytes (test code = Monocytes) 6.7 2.0-12.0 [facility] CenterPxegufhSHELEZOWEL7518-92-83 08:18:00 Test Item Value Reference Range Interpretation Comments C-REACTIVE PROTEIN (test code = 10.9 C-REACTIVE PROTEIN) [facility] AND [id number] 14:56:00 Test Item Value Reference Range Interpretation Comments UA Mucus (test code = UA Mucus) Few /LPF [facility] AND [id number] 14:56:00 Test Item Value Reference Range Interpretation Comments UA WBC (test code = no gt See_Comment [Automa lai message] The UA WBC) system which ge nerated this result transmit lai reference range : <=5. The reference range was not used to interpr et this result as sam l/abnormal. [facility] AND [id number] 14:56:00 Test Item Value Reference Range Interpretation Comments UA Sq Epi (test code = UA Sq Occasional /LPF Epi) [facility] AND [id number] 14:56:00 Test Item Value Reference Range Interpretation Comments UA RBC (test code = 1 See_Comment [Automa lai message] The UA RBC) system which ge nerated this result transmit lai reference range : <=2. The reference range was not used to interpr et this result as sam l/abnormal. [facility] AND [id number] 14:56:00 Test Item Value Reference Range Interpretation Comments UA Color (test code = Yellow *NA*(03/03/19 UA Color) 9:56 AM) [facility] AND [id number] 14:56:00 Test Item Value Reference Range Interpretation Comments UA Spec Grav (test code *NA*(03/03/19 9:56 AM) = UA Spec Grav) [facility] AND [id number] 14:56:00 Test Item Value Reference Range Interpretation Comments UA Turbidity (test code = Clear (03/03/19 9:56 UA Turbidity) AM) [facility] AND [id number] 14:56:00 Test Item Value Reference Range Interpretation Comments UA Bili (test code = Negative *NA*(03/03/19 UA Bili) 9:56 AM) [facility] [id number] 14:56:00 Test Item Value Reference Range Interpretation Comments UA Ketones (test code Negative *NA*(03/03/19 = UA Ketones) 9:56 AM) [facility] AND [id number] 14:56:00 Test Item Value Reference Range Interpretation Comments UA pH (test code = UA pH) 7.0 1 5.0-8.0 [facility] AND [id number] 14:56:00 Test Item Value Reference Range Interpretation Comments UA Protein (test code Negative (03/03/19 9:56 = UA Protein) AM) [facility] AND [id number] 14:56:00 Test Item Value Reference Range Interpretation Comments UA Nitrite (test code Negative (03/03/19 9:56 = UA Nitrite) AM) [facility] AND [id number] 14:56:00 Test Item Value Reference Range Interpretation Comments UA Urobilinogen (test code = UA 0.2 0.1-1.0 Urobilinogen) [facility] AND [id number] 14:56:00 Test Item Value Reference Range Interpretation Comments UA Blood (test code = Negative (03/03/19 9:56 UA Blood) AM) [facility] AND [id number] 14:56:00 Test Item Value Reference Range Interpretation Comments UA Leuk Est (test Negative (03/03/19 9:56 code = UA Leuk Est) AM) [facility] AND [id number] 14:56:00 Test Item Value Reference Range Interpretation Comments UA Glucose (test code Negative (03/03/19 9:56 = UA Glucose) AM) [facility] [id number] 08:27:00 Test Item Value Reference Range Interpretation Comments BUN (test code = BUN) 5 7-22 [facility]2019-07-28 08:27:00 Test Item Value Reference Range Interpretation Comments Glucose Lvl (test code = Glucose Lvl) 106 70-99 [facility]2019-07-28 08:27:00 Test Item Value Reference Range Interpretation Comments Creatinine Lvl (test code = Creatinine 0.63 0.50-1.40 Lvl) [facility]2019-07-28 08:27:00 Test Item Value Reference Range Interpretation Comments AGAP (test code = AGAP) 10.9 10.0-20.0 [facility]2019-07-28 08:27:00 Test Item Value Reference Range Interpretation Comments Sodium Lvl (test code = Sodium Lvl) 140 135-145 [facility]2019-07-28 08:27:00 Test Item Value Reference Range Interpretation Comments Chloride Lvl (test code = Chloride Lvl) 110 95-109 [facility]2019-07-28 08:27:00 Test Item Value Reference Range Interpretation Comments Potassium Lvl (test code = Potassium 3.9 3.5-5.1 Lvl) [facility]2019-07-28 08:27:00 Test Item Value Reference Range Interpretation Comments eGFR (test code = eGFR) 122 [facility]2019-07-28 08:27:00 Test Item Value Reference Range Interpretation Comments Calcium Lvl (test code = Calcium Lvl) 8.7 8.5-10.5 [facility]2019-07-28 08:27:00 Test Item Value Reference Range Interpretation Comments CO2 (test code = CO2) 23 24-32 [id number] 08:27:00 Test Item Value Reference Range Interpretation Comments WBC (test code = WBC) 14.2 3.7-10.4 [facility] HospitalXimtwzbZYJSCBPHDM1817-06-64 08:27:00 Test Item Value Reference Range Interpretation Comments RBC (test code = RBC) 3.97 4.20-5.40 [facility] H[id number] 08:27:00 Test Item Value Reference Range Interpretation Comments MCH (test code = MCH) 28.0 pg 27.0-31.0 [facility] H[id number] 08:27:00 Test Item Value Reference Range Interpretation Comments MCHC (test code = MCHC) 33.5 32.0-36.0 [facility] H[id number] 08:27:00 Test Item Value Reference Range Interpretation Comments RDW (test code = RDW) 13.9 11.5-14.5 [facility] HospitalUtuhtucBJASRUMRTJ2575-10-86 08:27:00 Test Item Value Reference Range Interpretation Comments Platelet (test code = Platelet) 264 133-450 [facility] HospitalKgsgkpvCQMYENTIXN5429-07-21 08:27:00 Test Item Value Reference Range Interpretation Comments MPV (test code = MPV) 10.2 7.4-10.4 [facility] HospitalCmgtgluCJCAVEBIEY1484-25-56 08:27:00 Test Item Value Reference Range Interpretation Comments Hgb (test code = Hgb) 11.1 12.0-16.0 [facility] Hospit[id number] 08:27:00 Test Item Value Reference Range Interpretation Comments Hct (test code = Hct) 33.2 36.0-48.0 [facility] HospitalLodqsnlCRJBUGWAQF4985-82-85 08:27:00 Test Item Value Reference Range Interpretation Comments MCV (test code = MCV) 83.8 80.0-98.0 [facility] CenterNtawoxfWURVFNGFDC5993-16-05 08:27:00 Test Item Value Reference Range Interpretation Comments C-REACTIVE PROTEIN (test code = 4.4 C-REACTIVE PROTEIN) [facility]KgjupjqQPKJGOOELUWR3870-45-44 09:12:00 Test Item Value Reference Range Interpretation Comments CO2 (test code = CO2) 24 24-32 [facility] CenterJmdhpwhRXTJLGAFNKLU2343-00-46 09:12:00 Test Item Value Reference Range Interpretation Comments Creatinine Lvl (test code = Creatinine 0.76 0.50-1.40 Lvl) [facility] CenterYlsoewbDLPINTZOPIQB2711-23-64 09:12:00 Test Item Value Reference Range Interpretation Comments Chloride Lvl (test code = Chloride Lvl) 111 95-109 [facility] CenterNrqsaedSWUUIEOQNPRI0214-43-57 09:12:00 Test Item Value Reference Range Interpretation Comments Potassium Lvl (test code = Potassium 3.7 3.5-5.1 Lvl) [facility] CenterVtejfbqYEJYXKRBCDEW9025-47-39 09:12:00 Test Item Value Reference Range Interpretation Comments Sodium Lvl (test code = Sodium Lvl) 144 135-145 [facility] CenterHpqbhkhVSOWVKQPLYHC9345-45-24 09:12:00 Test Item Value Reference Range Interpretation Comments BUN (test code = BUN) 6 7-22 [facility] CenterKzoktlvPLGLQGUIBPKN0587-88-68 09:12:00 Test Item Value Reference Range Interpretation Comments Glucose Lvl (test code = Glucose Lvl) 89 70-99 [facility] CenterNtsqbshKMSKWZGHMQOS3011-67-55 09:12:00 Test Item Value Reference Range Interpretation Comments AGAP (test code = AGAP) 12.7 10.0-20.0 [facility] CenterYccprgxAPCIXFLUUOKQ4100-03-28 09:12:00 Test Item Value Reference Range Interpretation Comments Calcium Lvl (test code = Calcium Lvl) 8.4 8.5-10.5 [facility] CenterRxtawgxIZXVQBYZWVES7118-79-41 09:12:00 Test Item Value Reference Range Interpretation Comments eGFR (test code = eGFR) 106 [facility] HospitalUcyffhcXUTFUFPUQZ4118-86-28 09:12:00 Test Item Value Reference Range Interpretation Comments MCV (test code = MCV) 84.7 80.0-98.0 [facility] HospitalBebeqenJBESGTLJGE5878-39-02 09:12:00 Test Item Value Reference Range Interpretation Comments MCH (test code = MCH) 27.8 pg 27.0-31.0 [facility] HospitalRdjpxxqMLFJDUVQLX2339-75-29 09:12:00 Test Item Value Reference Range Interpretation Comments MCHC (test code = MCHC) 32.8 32.0-36.0 [facility] HospitalEtdfpwoAXQIQMVHHB7083-61-28 09:12:00 Test Item Value Reference Range Interpretation Comments RDW (test code = RDW) 14.1 11.5-14.5 [facility] HospitalDyajsmoBLOELLLQJN1043-09-01 09:12:00 Test Item Value Reference Range Interpretation Comments Platelet (test code = Platelet) 224 133-450 [facility] HospitalYfkyqnjRPPPNKGIQI9253-97-06 09:12:00 Test Item Value Reference Range Interpretation Comments RBC (test code = RBC) 3.90 4.20-5.40 [facility] HospitalTlpwazfZEAHRZWILI1263-96-41 09:12:00 Test Item Value Reference Range Interpretation Comments Hgb (test code = Hgb) 10.8 12.0-16.0 [facility] HospitalRgqyqgiBPIOGPQYBS0495-81-77 09:12:00 Test Item Value Reference Range Interpretation Comments Hct (test code = Hct) 33.1 36.0-48.0 [facility] HospitalGkdinsbHUWJFVMAPJ2641-58-22 09:12:00 Test Item Value Reference Range Interpretation Comments MPV (test code = MPV) 9.9 7.4-10.4 [facility] HospitalWenbtkpGHIOWYRUJW6682-38-19 09:12:00 Test Item Value Reference Range Interpretation Comments WBC (test code = WBC) 11.1 3.7-10.4 [facility] CenterHjbnkhoRPYDZEHOOI6140-68-45 09:12:00 Test Item Value Reference Range Interpretation Comments C-REACTIVE PROTEIN (test code = 3.3 C-REACTIVE PROTEIN) [facility]2019-07-26 09:25:00 Test Item Value Reference Range Interpretation Comments Magnesium Lvl (test code = Magnesium 2.1 1.8-2.4 Lvl) [facility]2019-07-25 09:41:00 Test Item Value Reference Range Interpretation Comments Bili Total (test code = Bili Total) 0.3 0.2-1.3 [facility]2019-07-25 09:41:00 Test Item Value Reference Range Interpretation Comments B/C Ratio (test code = B/C Ratio) 7 1 6-25 [facility]2019-07-25 09:41:00 Test Item Value Reference Range Interpretation Comments Globulin (test code = Globulin) 3.0 2.7-4.2 [facility]2019-07-25 09:41:00 Test Item Value Reference Range Interpretation Comments A/G Ratio (test code = A/G Ratio) 1.1 1 0.7-1.6 [facility]2019-07-25 09:41:00 Test Item Value Reference Range Interpretation Comments AST (test code = AST) 6 See_Comment [Auto mated message] The system which ge nerated this result transmit lai reference range : <=37. The reference range was not used to interpr et this result as sam l/abnormal. [facility]2019-07-25 09:41:00 Test Item Value Reference Range Interpretation Comments Alk Phos (test code = Alk Phos) 61 39-136 [facility]2019-07-25 09:41:00 Test Item Value Reference Range Interpretation Comments ALT (test code = ALT) 14 See_Comment [Auto mated message] The system which ge nerated this result transmit lai reference range : <=65. The reference range was not used to interpr et this result as sam l/abnormal. [facility]2019-07-25 09:41:00 Test Item Value Reference Range Interpretation Comments Albumin Lvl (test code = Albumin Lvl) 3.2 3.5-5.0 [facility]2019-07-25 09:41:00 Test Item Value Reference Range Interpretation Comments Total Protein (test code = Total 6.2 6.4-8.4 Protein) [facility]2019-07-25 09:41:00 Test Item Value Reference Range Interpretation Comments Magnesium Lvl (test code = Magnesium 2.2 1.8-2.4 Lvl) [facility] HospitalGuglgjpHHNFLYPKRL9880-28-49 09:41:00 Test Item Value Reference Range Interpretation Comments Sed Rate (test code = 21 See_Comment [Auto mated message] The Sed Rate) system which ge nerated this result transmit lai reference range : <=20. The reference range was not used to interpr et this result as sam l/abnormal. [facility] HospitalKxdzpqwKYBEVKDOHU8291-26-57 09:41:00 Test Item Value Reference Range Interpretation Comments Basophils # (test code 0.1 See_Comment [Aut omated message] The = Basophils #) system which generated this result tra nsmitted reference range : <=0.2. The reference r andres was not used to int erpret this result as normal/abnormal . [facility] HospitalHrlrmhaMGETJLBQWR2186-69-24 09:41:00 Test Item Value Reference Range Interpretation Comments Monocytes # (test code 0.7 See_Comment [Aut omated message] The = Monocytes #) system which generated this result tra nsmitted reference range : <=0.8. The reference r andres was not used to int erpret this result as normal/abnormal . [facility] HospitalKfimiznZLGITHZHLD0487-45-55 09:41:00 Test Item Value Reference Range Interpretation Comments Eosinophils # (test code 0.1 See_Comment [A utomated message] The = Eosinophils #) system whic h generated this result tra nsmitted reference range : <=0.5. The reference r andres was not used to int erpret this result as normal/abnormal . [facility] HospitalOhywugzZVSBKGIXSH0074-65-59 09:41:00 Test Item Value Reference Range Interpretation Comments Lymphocytes (test code = Lymphocytes) 36.3 20.0-40.0 [facility] HospitalHiejsvlIAGKZWTYNG4038-70-68 09:41:00 Test Item Value Reference Range Interpretation Comments Segs (test code = Segs) 55.1 45.0-75.0 [facility] HospitalIcgitptENQYIECKDD1226-52-97 09:41:00 Test Item Value Reference Range Interpretation Comments Lymphocytes # (test code = Lymphocytes 3.7 1.0-5.5 #) [facility] HospitalMfzupnoXJGFAFFSHF4309-92-13 09:41:00 Test Item Value Reference Range Interpretation Comments Neutrophils # (test code = Neutrophils 5.6 1.5-8.1 #) [facility] HospitalTvhozvbYFEHHNEMGP1479-97-30 09:41:00 Test Item Value Reference Range Interpretation Comments Monocytes (test code = Monocytes) 7.1 2.0-12.0 [facility] HospitalJvawcyjOBGJOAMGEI0212-86-78 09:41:00 Test Item Value Reference Range Interpretation Comments Basophils (test code = 0.5 See_Comment [Aut omated message] The Basophils) system which ge nerated this result tra nsmitted reference range : <=1.0. The reference r andres was not used to int erpret this result as normal/abnormal . [facility] HospitalWeukajgRIAWIFIVZY2264-12-45 09:41:00 Test Item Value Reference Range Interpretation Comments Eosinophils (test code = 1.0 See_Comment [A utomated message] The Eosinophils) system which ge nerated this result tra nsmitted reference range : <=4.0. The reference r andres was not used to int erpret this result as normal/abnormal . [facility] XLYIXQEGU0949-04-14 09:41:00 Test Item Value Reference Range Interpretation Comments Hgb A1C (test code = Hgb A1C) 5.7 [facility]CHE[facility] 7 [id number] 08:51:00 Test Item Value Reference Range Interpretation Comments IONIZED CALCIUM (test 1.23 mmol/L 1.13-1.32 N code = CAIABG) ISTAT-TCO2 VENOUS (test 24 MMOL/L 21-32 N code = TCO2VP) ISTAT-SAMPLE SOURCE UNKNOWN SPEC TYPE Specimen (test code = SRCIST) Descript ISTAT-SODIUM (test code 142 MMOL/L 135-148 N = NAP) ISTAT-POTASSIUM (test 4.1 MMOL/L 3.5-5.9 N code = KP) ISTAT-CHLORIDE (test 106 MMOL/L 98-106 N code = CLP) ISTAT-ANION GAP (test 17.0 MEQ/L 10-20 N code = GAPP) ISTAT-GLUCOSE (test 101 MG/DL 70-119 N code = GLUP) ISTAT-BUN (test code = TEST NOT PERFORMED 04-03 BUNP) MG/DL BEDSIDE CREATININE 0.6 MG/DL 0.6-1.2 N (test code = CREATBED) GLOMERULAR FILTRATION 118 71-165 N RATE POC (test code = GFRBED) MOLECULAR [id number] 00:10:00 Test Item Value Reference Range Interpretation Comments C difficile DNA (test Negative (02/27/19 7:10 code = C difficile DNA) PM) [facility] CenterFgflatmNHWQRIDVTA0486-30-15 00:07:00 Test Item Value Reference Range Interpretation Comments Calprotectin (test code = no gt See_Comment [ Automated message] Calprotectin) The system [employer] generated this result transmitted ref erence range: <=120. T he reference range was not used to interpr et this result as normal/abnormal . [facility] AND [id number] 00:07:00 Test Item Value Reference Range Interpretation Comments Fecal Leukocyte (test None Seen (02/27/19 code = Fecal Leukocyte) 7:07 PM) [facility] [id number] 00:07:00 Test Item Value Reference Range Interpretation Comments Culture: Stool Normal Enteric Linda (test code = Isolated No Salmonella, Culture: Stool) Shigella, Or Campylobacter Isolated [facility]ann[facility] [id number] 11:20:00 Test Item Value Reference Range Interpretation Comments U Opiate Scr (test Positive *ABN*(02/27/19 code = U Opiate Scr) 6:20 AM) [facility] [id number] 11:20:00 Test Item Value Reference Range Interpretation Comments UDS Note (test code = See Note (02/27/19 6:20 UDS Note) AM) [facility] [id number] 11:20:00 Test Item Value Reference Range Interpretation Comments U Phencyclidine Scr (test Negative code = U Phencyclidine *NA*(02/27/19 6:20 Scr) AM) [facility] [id number] 11:20:00 Test Item Value Reference Range Interpretation Comments U Benzodiaz Scr (test Negative *NA*(02/27/19 code = U Benzodiaz Scr) 6:20 AM) [facility] [id number] 11:20:00 Test Item Value Reference Range Interpretation Comments U Cannab Scr (test Negative *NA*(02/27/19 code = U Cannab Scr) 6:20 AM) [facility] [id number] 11:20:00 Test Item Value Reference Range Interpretation Comments U Cocaine Scr (test Negative *NA*(02/27/19 code = U Cocaine Scr) 6:20 AM) [facility] [id number] 11:20:00 Test Item Value Reference Range Interpretation Comments U Amph Scr (test code Negative *NA*(02/27/19 = U Amph Scr) 6:20 AM) [facility] [id number] 11:20:00 Test Item Value Reference Range Interpretation Comments U Britney Scr (test code Negative *NA*(02/27/19 = U Britney Scr) 6:20 AM) [facility] [id number] 11:20:00 Test Item Value Reference Range Interpretation Comments UA Color (test code = UA Color) YELLOW [facility] [id number] 11:20:00 Test Item Value Reference Range Interpretation Comments UA Urobilinogen (test code = UA <=1.0 mg/dL 0.1-1.0 Urobilinogen) [facility] [id number] 11:20:00 Test Item Value Reference Range Interpretation Comments Micro? (test code = Not Indicated Micro?) *NA*(02/27/19 6:20 AM) [facility] [id number] 11:20:00 Test Item Value Reference Range Interpretation Comments UA Turbidity (test code = Clear (02/27/19 6:20 UA Turbidity) AM) [facility] [id number] 11:20:00 Test Item Value Reference Range Interpretation Comments UA Leuk Est (test Negative (02/27/19 6:20 code = UA Leuk Est) AM) [facility] AND [id number] 11:20:00 Test Item Value Reference Range Interpretation Comments UA Spec Grav (test code = UA Spec 1.032 1 Grav) [facility] AND [id number] 11:20:00 Test Item Value Reference Range Interpretation Comments UA Protein (test code = UA Negative mg/dL Protein) [facility] AND [id number] 11:20:00 Test Item Value Reference Range Interpretation Comments UA pH (test code = UA pH) 6.0 1 5.0-8.0 [facility] AND [id number] 11:20:00 Test Item Value Reference Range Interpretation Comments UA Ketones (test code = UA Negative mg/dL Ketones) [facility] AND [id number] 11:20:00 Test Item Value Reference Range Interpretation Comments UA Glucose (test code = UA Negative mg/dL Glucose) [facility] AND [id number] 11:20:00 Test Item Value Reference Range Interpretation Comments UA Bili (test code = Negative *NA*(02/27/19 UA Bili) 6:20 AM) [facility] AND [id number] 11:20:00 Test Item Value Reference Range Interpretation Comments UA Nitrite (test code Negative (02/27/19 6:20 = UA Nitrite) AM) [facility] AND [id number] 11:20:00 Test Item Value Reference Range Interpretation Comments UA Blood (test code = Negative (02/27/19 6:20 UA Blood) AM) [facility] [id number] 04:28:00 Test Item Value Reference Range Interpretation Comments Troponin-I (test code no gt See_Comment [Auto mated message] The = Troponin-I) system which g enerated this result transmit lai reference range : <=0.40. The reference r andres was not used to interpr et this result as sam l/abnormal. [facility] CenterCHE[facility] [id number] 04:28:00 Test Item Value Reference Range Interpretation Comments Bili Total (test code = Bili Total) 0.3 0.2-1.3 [facility] CenterCHEM [id number] 04:28:00 Test Item Value Reference Range Interpretation Comments Total Protein (test code = Total 7.0 6.4-8.4 Protein) [facility]2019-07-24 04:28:00 Test Item Value Reference Range Interpretation Comments AST (test code = AST) 7 See_Comment [Auto mated message] The system which ge nerated this result transmit lai reference range : <=37. The reference range was not used to interpr et this result as sam l/abnormal. [facility]2019-07-24 04:28:00 Test Item Value Reference Range Interpretation Comments ALT (test code = ALT) 18 See_Comment [Auto mated message] The system which ge nerated this result transmit lai reference range : <=65. The reference range was not used to interpr et this result as sam l/abnormal. [facility]2019-07-24 04:28:00 Test Item Value Reference Range Interpretation Comments Albumin Lvl (test code = Albumin Lvl) 3.6 3.5-5.0 [facility]2019-07-24 04:28:00 Test Item Value Reference Range Interpretation Comments Alk Phos (test code = Alk Phos) 73 39-136 [facility]2019-07-24 04:28:00 Test Item Value Reference Range Interpretation Comments A/G Ratio (test code = A/G Ratio) 1.1 1 0.7-1.6 [facility]2019-07-24 04:28:00 Test Item Value Reference Range Interpretation Comments B/C Ratio (test code = B/C Ratio) 9 1 6-25 [facility]2019-07-24 04:28:00 Test Item Value Reference Range Interpretation Comments Globulin (test code = Globulin) 3.4 2.7-4.2 [facility]2019-07-24 04:28:00 Test Item Value Reference Range Interpretation Comments Lipase Lvl (test code = Lipase Lvl) 76 73-393 [facility] CenterVpxfruySAKMBWOQPCICN9214-91-51 04:28:00 Test Item Value Reference Range Interpretation Comments S Preg (test code = S Negative *NA*(02/26/19 Preg) 11:28 PM) [facility] CenterFrfetqlZTGUJAHDNU9500-42-81 04:28:00 Test Item Value Reference Range Interpretation Comments INR (test code = INR) 0.95 1 0.85-1.17 [facility] HospitalVxkwjbzEYUVYFRYUS6563-13-43 04:28:00 Test Item Value Reference Range Interpretation Comments PT (test code = PT) 12.5 s 12.0-14.7 [facility] Hospit[id number] 04:28:00 Test Item Value Reference Range Interpretation Comments PTT (test code = PTT) 30.6 s 22.9-35.8 [facility] HospitalVhsexfdBVMHHNVJSQ0630-86-64 04:28:00 Test Item Value Reference Range Interpretation Comments Basophils # (test code 0.1 See_Comment [Aut omated message] The = Basophils #) system which generated this result tra nsmitted reference range : <=0.2. The reference r andres was not used to int erpret this result as normal/abnormal . [facility] HospitalMifaomjYWZYVTURTL5291-66-39 04:28:00 Test Item Value Reference Range Interpretation Comments Eosinophils # (test code 0.2 See_Comment [A utomated message] The = Eosinophils #) system whic h generated this result tra nsmitted reference range : <=0.5. The reference r andres was not used to int erpret this result as normal/abnormal . [facility] HospitalOeyjxsbFVULZUKNVH0859-73-25 04:28:00 Test Item Value Reference Range Interpretation Comments Monocytes # (test code 0.6 See_Comment [Aut omated message] The = Monocytes #) system which generated this result tra nsmitted reference range : <=0.8. The reference r andres was not used to int erpret this result as normal/abnormal . [facility] HospitalBmcgadcXRGJPMNKGD8152-76-89 04:28:00 Test Item Value Reference Range Interpretation Comments Lymphocytes # (test code = Lymphocytes 3.8 1.0-5.5 #) [facility] H[id number] 04:28:00 Test Item Value Reference Range Interpretation Comments Basophils (test code = 0.5 See_Comment [Aut omated message] The Basophils) system which ge nerated this result tra nsmitted reference range : <=1.0. The reference r andres was not used to int erpret this result as normal/abnormal . [facility] Hosp[id number] 04:28:00 Test Item Value Reference Range Interpretation Comments Neutrophils # (test code = Neutrophils 7.8 1.5-8.1 #) [facility] Hos[id number] 04:28:00 Test Item Value Reference Range Interpretation Comments Eosinophils (test code = 1.8 See_Comment [A utomated message] The Eosinophils) system which ge nerated this result tra nsmitted reference range : <=4.0. The reference r andres was not used to int erpret this result as normal/abnormal . [facility] HospitalOrdgpyxGIFMUQEOJX6590-62-07 04:28:00 Test Item Value Reference Range Interpretation Comments Monocytes (test code = Monocytes) 4.7 2.0-12.0 [facility] HospitalUoxbuqxHHPCAEBCPH0061-84-09 04:28:00 Test Item Value Reference Range Interpretation Comments Segs (test code = Segs) 62.5 45.0-75.0 [facility] HospitalLyzlwzkSEAWFVHSDU5702-56-08 04:28:00 Test Item Value Reference Range Interpretation Comments Lymphocytes (test code = Lymphocytes) 30.5 20.0-40.0 [facility] ABD PELVIS [id number] 13:07:00 Patient Name: NINI SMALL Unit No: [id number] EXAMS: CPT CODE: [id number] CT ABD PELVIS W/CONT [id number] LOCATION: T18 CT abdomen and pelvis with IV and oral contrast INDICATION: Abdominal pain, nausea and vomiting Axial CT images obtained with IV and oral contrast at 5 mm slice thickness. The patient was given 75 mm Isovue 300 contrast intravenously. Up to date CT and radiation dose reduction techniques were utilized. Automatic exposure control was also used. CT ABDOMEN: Lung bases are clear. No pleural effusion. Liver, gallbladder, spleen, pancreas, adrenal glands, kidneys, aorta and IVC are within normal limits. No free fluid, free air or adenopathy. Bowel loops and appendix are normal. CT PELVIS: The urinary bladder is normally distended. Small follicles in ovaries. No pelvic free fluid, mass or adenopathy. IMPRESSION: No acute findings. at 1307 Reported and signed by: Roel Calero D.O. CC: Antonio Nixon MD Dictated Date/Time: 02/26/2019 (7791) Technologist: Greg Crowley CTDI: 12.45 DLP: 720.29 Trnscrpt: 02/26/2019 (1307) Chuy.JTM WENDI Weiss NAME: NINI SMALL [address] [place] [address] Blvd PHYS:LIAM Goldman [place] [address] : 1990 AGE: 28 SEX: F LOC: B.ERS PHONE #: EXAM DATE: 02/26/2019 STATUS: DEP ER FAX #: [phone] RAD #: D/C DT PAGE 1 Signed Report Patient Name: NINI SMALL Unit No: [id number] EXAMS: CPT CODE: [id number] CT ABD PELVIS [id number] <Continued> Orig Print D/T: S: 02/26/2019 (1333) WENDI Weiss NAME: STAC[address] PHYS: Antonio Almeida [place] [address] : 1990 AGE: 28 SEX: F LOC: B.ERS PHONE #: [phone] EXAM DATE: 02/26/2019 STATUS: DEP ER FAX #: [phone] RAD #: D/C DT PAGE2 Signed ReportUA RFLX MICR CULT IF [id number] 11:30:00 Test Item Value Reference Range Interpretation Comments UA COLOR (test code = YELLOW DESCRIPT YELLOW COLU) UA APPEARANCE (test code CLEAR DESCRIPT CLEAR = APPU) UA GLUCOSE DIPSTICK (test NEGATIVE (0) mg/dL (NEG) 0 code = DGLUU) UA BILIRUBIN DIPSTICK NEGATIVE (0) mg/dL (NEG) 0 (test code = BILU) UA KETONE DIPSTICK (test 0 (NEG) mg/dL (NEG) 0 code = KETU) UA SPECIFIC GRAVITY (test 1.016 SG 1.001-1.035 code = SGU) UA BLOOD DIPSTICK (test NEGATIVE (0) mg/DL (NEG) 0 code = NEY) UA PH DIPSTICK (test code 6.0 pH UNITS 4.6-8.0 = ALINA) UA PROTEIN DIPSTICK (test NEGATIVE (0) mg/dL <30 (1+) code = PROU) UA UROBILINIOGEN DIPSTICK NORMAL (0) mg/dL <2.0 (1+) (test code = URO) UA NITRITE DIPSTICK (test NEGATIVE (0) SCREEN NEG code = DIANA) UA LEUKOCYTE ESTERASE 25(TR) Leuk/mcL (NEG) 0 A DIPSTICK (test code = LEUU) UA COMMENT (test code = CLEAN CATCH SPEC SpecComment COMU) Notes UA WBC (test code = WBCU) 3-5 #WBC/HPF 0-3 UA RBC (test code = RBCU) 0-3 #RBC/HPF 0-3 UA SQUAMOUS CELLS (test FEW >2 /HPF NONE-SQepi code = SQU) UA MUCUS (test code = RARE /LPF NONE MUCU) UA CULTURE NEEDED? (test Crit NOTmet CULT-N/A Cult byWBC code = UACULT) Criteria Indication for culture: Sev. Sepsis-no other srcHEPATIC FUNCTION PANEL 2019-02-26 11:22:00 Test Item Value Reference Range Interpretation Comments TOTAL PROTEIN (test code 7.4 G/DL 6.4-8.2 N = PROT) ALBUMIN (test code = ALB) 3.7 G/DL 3.4-5.0 N BILIRUBIN TOTAL (test 0.18 MG/DL 0.00-1.00 N code = BILT) BILIRUBIN DIRECT (test < 0.10 MG/DL 0.00-0.30 N code = BILD) BILIRUBIN INDIRECT (test 0.18 MG/DL 0.2-1.3 L code = BILIND) SGOT/AST (test code = 12 Unit/L 15-37 L AST) SGPT/ALT (test code = 17 Unit/L 12-78 N ALT) ALKALINE PHOSPHATASE 79 Unit/L 45-117 N TOTAL (test code = ALKP) INDEX HEMOLYSIS (test 1 NORMAL <10 MG 1 NORMAL code = HEMINDEX) Index/DL INDEX ICTERIC (test code 1 NORMAL <2 MG 1 NORMAL = ICTINDEX) Index/DL INDEX LIPEMIA (test code 1 NORMAL <50 MG 1 NORMAL = LIPINDEX) Index/DL Specimen comments: SEPSIS [id number] 11:22:00 Test Item Value Reference Range Interpretation Comments LIPASE (test code = LIP) 94 Unit/L 114-286 L Specimen comments: SEPSIS [id number] 11:22:00 Test Item Value Reference Range Interpretation Comments MAGNESIUM (test code = MAG) 2.1 MG/DL 1.6-2.6 N Specimen comments: SEPSIS [id number] 11:22:00 Test Item Value Reference Range Interpretation Comments TROPONIN-I < 0.015 NG/ML 0.000-0.045 N INTERPRET WITH CAUTION, THIS (test code = VALUE EXCEEDS T HE LOWER TROPI) LIMITOF LINEARI TY VERIFICATION ES TABLISHED BY THE LABORATORY. An elevated troponin value alone is not sufficient todi agnose a myocardial infa rction. Rather, the patient'sclinic al presentation (h istory, physical exam) and ECGshould be used in conj unction with troponin in the diagnostic evaluation of s uspected myocardial infa rction. Aserial samplin g protocol is recommended to facilitate theidentificati on of temporal change s in troponin levelscharacter istic of [place]. Specimen comments: SEPSIS WORKUPHEPATIC FUNCTION [id number] 11:19:00 Test Item Value Reference Range Interpretation Comments TOTAL PROTEIN (test code G/DL 6.4-8.2 = PROT) ALBUMIN (test code = ALB) 3.7 G/DL 3.4-5.0 N BILIRUBIN TOTAL (test MG/DL 0.00-1.00 code = BILT) BILIRUBIN DIRECT (test < 0.10 MG/DL 0.00-0.30 N code = BILD) BILIRUBIN INDIRECT (test MG/DL 0.2-1.3 code = BILIND) SGOT/AST (test code = 12 Unit/L 15-37 L AST) SGPT/ALT (test code = 17 Unit/L 12-78 N ALT) ALKALINE PHOSPHATASE Unit/L 45-117 TOTAL (test code = ALKP) INDEX HEMOLYSIS (test 1 NORMAL <10 MG 1 NORMAL code = HEMINDEX) Index/DL INDEX ICTERIC (test code 1 NORMAL <2 MG 1 NORMAL = ICTINDEX) Index/DL INDEX LIPEMIA (test code 1 NORMAL <50 MG 1 NORMAL = LIPINDEX) Index/DL Specimen comments: SEPSIS [id number] 11:19:00 Test Item Value Reference Range Interpretation Comments LIPASE (test code = LIP) 94 Unit/L 114-286 L Specimen comments: SEPSIS [id number] 11:19:00 Test Item Value Reference Range Interpretation Comments MAGNESIUM (test code = MAG) 2.1 MG/DL 1.6-2.6 N Specimen comments: SEPSIS [id number] 11:19:00 Test Item Value Reference Range Interpretation Comments TROPONIN-I (test code = TROPI) NG/ML 0.000-0.045 Specimen comments: SEPSIS WORKUPHCG SERUM [id number] 11:18:00 Test Item Value Reference Range Interpretation Comments HCG SERUM QUAL (test code = HCGQL) NEG SCREEN NEG Specimen comments: SEPSIS WORKUPCBC W/AUTO [id number] 11:11:00 Test Item Value Reference Range Interpretation Comments WHITE BLOOD CELL (test code = 11.2 K/mm3 4.1-12.1 N WBC) RED BLOOD CELL (test code = RBC) 4.58 M/mm3 3.8-5.5 N HEMOGLOBIN (test code = HGB) 12.5 G/DL 10.6-15.8 N HEMATOCRIT (test code = HCT) 40.6 % 31.8-47.4 N MEAN CELL VOLUME (test code = 88.6 fL 80.1-101.1 N MCV) MEAN CELL HGB (test code = MCH) 27.3 pg 25.3-35.3 N MEAN CELL HGB CONCETRATION (test 30.8 G/DL 32.7-35.1 L code = MCHC) RED CELL DISTRIBUTION WIDTH 14.0 % 12.2-16.4 N (test code = RDW) RED CELL DISTRIBUTION WIDTH 45.0 fL 36.4-46.3 N (test code = RDW-SD) PLATELET COUNT (test code = PLT) 308 K/mm3 155-337 N MEAN PLATELET VOLUME (test code 11.4 fL 6.8-11.2 H = MPV) GRANULOCYTE % (test code = GR%) 73.0 % 37.8-82.6 N IMMATURE GRANULOCYTE % (test 0.3 % 0.0-2.0 N code = IG%) LYMPHOCYTE % (test code = LY%) 20.2 % 14.1-45.4 N MONOCYTE % (test code = MO%) 5.0 % 2.5-11.7 N EOSINOPHIL % (test code = EO%) 1.2 % 0.0-6.2 N BASOPHIL % (test code = BA%) 0.3 % 0.0-2.1 N NUCLEATED RBC % (test code = 0.0 /100WBC% 0.0-1.0 N NRBC%) GRANULOCYTE # (test code = GR#) 8.19 k/mm3 2.0-13.7 N IMMATURE GRANULOCYTE # (test 0.03 K/mm3 0.00-0.03 N code = IG#) LYMPHOCYTE # (test code = LY#) 2.27 K/mm3 0.6-3.8 N MONOCYTE # (test code = MO#) 0.56 K/mm3 0.11-0.59 N EOSINOPHIL # (test code = EO#) 0.14 K/mm3 0.0-0.4 N BASOPHIL # (test code = BA#) 0.03 K/mm3 0.0-0.1 N NUCLEATED RBC # (test code = 0.00 K/mm3 0.0-0.05 N NRBC#) CHEMISTRY 7 [id number] 10:54:00 Test Item Value Reference Range Interpretation Comments IONIZED CALCIUM (test mmol/L 1.13-1.32 code = CAIABG) ISTAT-TCO2 VENOUS (test MMOL/L 21-32 N code = TCO2VP) ISTAT-SODIUM (test code MMOL/L 135-148 = NAP) ISTAT-POTASSIUM (test MMOL/L 3.5-5.9 code = KP) ISTAT-CHLORIDE (test MMOL/L 98-106 code = CLP) ISTAT-ANION GAP (test MEQ/L 10-20 code = GAPP) ISTAT-GLUCOSE (test MG/DL 70-119 N code = GLUP) ISTAT-BUN (test code = TEST NOT PERFORMED 8-28 BUNP) MG/DL BEDSIDE CREATININE MG/DL 0.6-1.2 N (test code = CREATBED) GLOMERULAR FILTRATION 118 71-165 N RATE POC (test code = GFRBED) CHEMISTRY 7 [id number] 10:54:00 Test Item Value Reference Range Interpretation Comments IONIZED CALCIUM (test 1.23 mmol/L 1.13-1.32 N code = CAIABG) ISTAT-TCO2 VENOUS (test 24 MMOL/L 21-32 N code = TCO2VP) ISTAT-SAMPLE SOURCE UNKNOWN SPEC TYPE Specimen (test code = SRCIST) Descript ISTAT-SODIUM (test code 142 MMOL/L 135-148 N = NAP) ISTAT-POTASSIUM (test 4.1 MMOL/L 3.5-5.9 N code = KP) ISTAT-CHLORIDE (test 106 MMOL/L 98-106 N code = CLP) ISTAT-ANION GAP (test 17.0 MEQ/L 10-20 N code = GAPP) ISTAT-GLUCOSE (test code 101 MG/DL 70-119 N = GLUP) ISTAT-BUN (test code = MG/DL 8-28 BUNP) BEDSIDE CREATININE (test 0.6 MG/DL 0.6-1.2 N code = CREATBED) GLOMERULAR FILTRATION 118 71-165 N RATE POC (test code = GFRBED) LACTIC ACID [id number] 10:54:00 Test Item Value Reference Range Interpretation Comments LACTIC ACID POC (test code = 1.02 MMOL/L i 0.40-2.00 N LACTP) - XR CHEST 1 [id number] 10:54:00 FAX: Antonio Nixon MD [phone] [place]: E St: PRE Patient Name: NINI ESPARZA Unit No: [id number] EXAMS: CPT CODE: [id number] XR CHEST 1 V [id number] Chest Radiograph History: CODE SEPSIS Comparison: None at this time Location: R16 A single frontal view of the chest is submitted. The heart is within normal limits in size. Pulmonary vasculature is unremarkable. The visualized lung mei appear to be free of disease. The bones appear unremarkable. IMPRESSION: There is no radiographic evidence of acute cardiopulmonary disease. at 1054 Reported and signed by: Agustín Smith MD CC: Antonio Nixon MD Dictated Date/Time: 02/26/2019 (2645)Technologist: Niki Avila Transcribed Date/Time: 02/26/2019 (0639) By: GlenroyPMT Orig Print D/T: S: 02/26/2019 (2902) WENDI Weiss NAME: NINI ESPARZA [address] [place] [address] Blvd PHYS: SONNY. - Antonio Nixon [place] [address] : 1990 AGE: 28 SEX: FACCT NO: [id number] LOC: B.ERS PHONE #: [phone] EXAM DATE: 02/26/2019 STATUS: PRE ER FAX #: [phone] RAD NO: DC Dt: PAGE 1 Signed ReportAG STREP GROUP A (THROAT)2019-01-14 08:27:00 Test Item Value Reference Range Interpretation Comments AG STREP GROUP A POS SCREEN NEG A INTERPRETAT ION OF STREP (THROAT) (test ANTIGEN RESUL TS:WHEN STREP code = STREPA) GROUP A ANTIG EN IS NOT DETECTED, THE NEGATIVERESULT DOES NOT RULE OUT THE MD ESENCE OF STREP GROUP A.W HEN STREP GROUP A ANTIGEN IS DETECTED, THE P OSITIVE RESULTIS SIGNIF ICANT. NEGATIVE RESULT S REFLEX A CULTURE. FORNE GATIVE RESULTS A CULTU RE IS IN PROGRESS, RESUL T TO FOLLOW. TRIMETHOPRIM+SULFAMETHOXAZOLE:SUSC:PT:ISOLATE:ORDQN:[id number] 02:20:00 Test Item Value Reference Range Interpretation Comments Culture: Urine (test >100,000 CFU/mL code = Culture: Escherichia coli Urine) [facility]annTRIMETHOPRIM+SULFAMETHOXAZOLE:SUSC:PT:ISOLATE:ORDQN:BRADLEY 2018-10-29 02:20:00 Test Item Value Reference Range Interpretation Comments Escherichia coli (test code Escherichia coli = Escherichia coli) [facility] AND [id number] 02:20:00 Test Item Value Reference Range Interpretation Comments UA Mucus (test code = UA Mucus) Few /LPF [facility] AND [id number] 02:20:00 Test Item Value Reference Range Interpretation Comments UA RBC (test code = no gt See_Comment [Automa lai message] The UA RBC) system which ge nerated this result transmit lai reference range : <=2. The reference range was not used to interpr et this result as sam l/abnormal. [facility] AND [id number] 02:20:00 Test Item Value Reference Range Interpretation Comments UA Bacteria (test code = UA Occasional /HPF Bacteria) [facility] AND [id number] 02:20:00 Test Item Value Reference Range Interpretation Comments UA Color (test code = Yellow *NA*(10/28/18 UA Color) 9:20 PM) [facility] AND [id number] 02:20:00 Test Item Value Reference Range Interpretation Comments UA Ketones (test code = UA Negative mg/dL Ketones) [facility] AND [id number] 02:20:00 Test Item Value Reference Range Interpretation Comments UA Sq Epi (test code = UA Sq Epi) Many /LPF [facility] AND [id number] 02:20:00 Test Item Value Reference Range Interpretation Comments UA WBC (test code = 34 See_Comment [Automa lai message] The UA WBC) system which ge nerated this result transmit lai reference range : <=5. The reference range was not used to interpr et this result as sam l/abnormal. [facility] AND [id number] 02:20:00 Test Item Value Reference Range Interpretation Comments UA Nitrite (test code Negative (10/28/18 9:20 = UA Nitrite) PM) [facility] AND [id number] 02:20:00 Test Item Value Reference Range Interpretation Comments UA Urobilinogen (test code = UA 2.0 0.1-1.0 Urobilinogen) [facility] AND [id number] 02:20:00 Test Item Value Reference Range Interpretation Comments UA Bili (test code = Negative *NA*(10/28/18 UA Bili) 9:20 PM) [facility] AND [id number] 02:20:00 Test Item Value Reference Range Interpretation Comments UA Blood (test code = Large *ABN*(10/28/18 UA Blood) 9:20 PM) [facility] AND [id number] 02:20:00 Test Item Value Reference Range Interpretation Comments UA Protein (test code = UA Protein) 20 mg/dL [facility] AND [id number] 02:20:00 Test Item Value Reference Range Interpretation Comments UA Glucose (test code = UA Negative mg/dL Glucose) [facility] AND [id number] 02:20:00 Test Item Value Reference Range Interpretation Comments UA Turbidity (test code Slight *ABN*(10/28/18 = UA Turbidity) 9:20 PM) [facility] AND [id number] 02:20:00 Test Item Value Reference Range Interpretation Comments UA pH (test code = UA pH) 6.0 1 5.0-8.0 [facility] AND [id number] 02:20:00 Test Item Value Reference Range Interpretation Comments UA Spec Grav (test code = UA Spec 1.018 1 Grav) [facility] AND [id number] 02:20:00 Test Item Value Reference Range Interpretation Comments UA Leuk Est (test code Large *ABN*(10/28/18 = UA Leuk Est) 9:20 PM) [facility]2019-03-25 01:26:00 Test Item Value Reference Range Interpretation Comments Globulin (test code = Globulin) 3.6 2.7-4.2 [facility]2019-03-25 01:26:00 Test Item Value Reference Range Interpretation Comments B/C Ratio (test code = B/C Ratio) 11 1 6-25 [facility]2019-03-25 01:26:00 Test Item Value Reference Range Interpretation Comments A/G Ratio (test code = A/G Ratio) 1.0 1 0.7-1.6 [facility]2019-03-25 01:26:00 Test Item Value Reference Range Interpretation Comments AGAP (test code = AGAP) 11.9 10.0-20.0 [facility]2019-03-25 01:26:00 Test Item Value Reference Range Interpretation Comments eGFR (test code = eGFR) 109 [facility]2019-03-25 01:26:00 Test Item Value Reference Range Interpretation Comments Glucose Lvl (test code = Glucose Lvl) 100 70-99 [facility]2019-03-25 01:26:00 Test Item Value Reference Range Interpretation Comments Chloride Lvl (test code = Chloride Lvl) 109 95-109 [facility]2019-03-25 01:26:00 Test Item Value Reference Range Interpretation Comments Creatinine Lvl (test code = Creatinine 0.75 0.50-1.40 Lvl) [facility]2019-03-25 01:26:00 Test Item Value Reference Range Interpretation Comments BUN (test code = BUN) 8 7-22 [facility]2019-03-25 01:26:00 Test Item Value Reference Range Interpretation Comments Potassium Lvl (test code = Potassium 3.9 3.5-5.1 Lvl) [facility]2019-03-25 01:26:00 Test Item Value Reference Range Interpretation Comments Sodium Lvl (test code = Sodium Lvl) 143 135-145 [place] [id number] 01:26:00 Test Item Value Reference Range Interpretation Comments CO2 (test code = CO2) 26 24-32 [facility]2019-03-25 01:26:00 Test Item Value Reference Range Interpretation Comments Albumin Lvl (test code = Albumin Lvl) 3.6 3.5-5.0 [facility]2019-03-25 01:26:00 Test Item Value Reference Range Interpretation Comments Calcium Lvl (test code = Calcium Lvl) 8.6 8.5-10.5 [place] [id number] 01:26:00 Test Item Value Reference Range Interpretation Comments Total Protein (test code = Total 7.2 6.4-8.4 Protein) [facility]2019-03-25 01:26:00 Test Item Value Reference Range Interpretation Comments Bili Total (test code = Bili Total) 0.1 0.2-1.3 [place] [id number] 01:26:00 Test Item Value Reference Range Interpretation Comments Alk Phos (test code = Alk Phos) 90 39-136 [facility]2019-03-25 01:26:00 Test Item Value Reference Range Interpretation Comments AST (test code = AST) 10 See_Comment [Auto mated message] The system which ge nerated this result transmit lai reference range : <=37. The reference range was not used to interpr et this result as sam l/abnormal. [place] [id number] 01:26:00 Test Item Value Reference Range Interpretation Comments ALT (test code = ALT) 21 See_Comment [Auto mated message] The system which ge nerated this result transmit lai reference range : <=65. The reference range was not used to interpr et this result as sam l/abnormal. [place] [id number] 01:26:00 Test Item Value Reference Range Interpretation Comments S Preg (test code = S Negative *NA*(10/28/18 Preg) 8:26 PM) [id number] 01:26:00 Test Item Value Reference Range Interpretation Comments Basophils # (test code 0.1 See_Comment [Aut omated message] The = Basophils #) system which generated this result tra nsmitted reference range : <=0.2. The reference r andres was not used to int erpret this result as normal/abnormal . [facility] H[id number] 01:26:00 Test Item Value Reference Range Interpretation Comments Eosinophils (test code = 2.1 See_Comment [A utomated message] The Eosinophils) system which ge nerated this result tra nsmitted reference range : <=4.0. The reference r andres was not used to int erpret this result as normal/abnormal . [facility] H[id number] 01:26:00 Test Item Value Reference Range Interpretation Comments Monocytes (test code = Monocytes) 5.4 2.0-12.0 [facility] Hos[id number] 01:26:00 Test Item Value Reference Range Interpretation Comments Lymphocytes (test code = Lymphocytes) 28.4 20.0-40.0 [facility] HospitalLjiqkvuGWTKQVBNFL7590-49-44 01:26:00 Test Item Value Reference Range Interpretation Comments Segs (test code = Segs) 63.5 45.0-75.0 [facility] H[id number] 01:26:00 Test Item Value Reference Range Interpretation Comments Eosinophils # (test code 0.3 See_Comment [A utomated message] The = Eosinophils #) system wh h generated this result tra nsmitted reference range : <=0.5. The reference r andres was not used to int erpret this result as normal/abnormal . [facility] HospitalQfcdgufZCNBZZTYIL3439-08-28 01:26:00 Test Item Value Reference Range Interpretation Comments Monocytes # (test code 0.7 See_Comment [Aut omated message] The = Monocytes #) system which generated this result tra nsmitted reference range : <=0.8. The reference r andres was not used to int erpret this result as normal/abnormal . [facility] Hos[id number] 01:26:00 Test Item Value Reference Range Interpretation Comments Lymphocytes # (test code = Lymphocytes 3.9 1.0-5.5 #) [facility] HospitalWvxdpjpZETEJUKWXM3464-12-04 01:26:00 Test Item Value Reference Range Interpretation Comments Neutrophils # (test code = Neutrophils 8.7 1.5-8.1 #) [facility] Ho[id number] 01:26:00 Test Item Value Reference Range Interpretation Comments Basophils (test code = 0.6 See_Comment [Aut omated message] The Basophils) system which ge nerated this result tra nsmitted reference range : <=1.0. The reference r andres was not used to int erpret this result as normal/abnormal . [place] [id number] 01:26:00 Test Item Value Reference Range Interpretation Comments Platelet (test code = Platelet) 296 133-450 [facility] HospitalIppztnrIPGDLKILLQ7657-29-30 01:26:00 Test Item Value Reference Range Interpretation Comments MPV (test code = MPV) 9.7 7.4-10.4 [facility] H[id number] 01:26:00 Test Item Value Reference Range Interpretation Comments MCH (test code = MCH) 27.4 pg 27.0-31.0 [facility] HospitalSgyazxuQFOVPBQQRN5042-41-02 01:26:00 Test Item Value Reference Range Interpretation Comments MCV (test code = MCV) 84.2 80.0-98.0 [place] [id number] 01:26:00 Test Item Value Reference Range Interpretation Comments RDW (test code = RDW) 13.9 11.5-14.5 [facility] Hos[id number] 01:26:00 Test Item Value Reference Range Interpretation Comments MCHC (test code = MCHC) 32.5 32.0-36.0 [facility] HospitalQnywebaEGRIUFEGCF1825-16-05 01:26:00 Test Item Value Reference Range Interpretation Comments WBC (test code = WBC) 13.7 3.7-10.4 [facility] Ho[id number] 01:26:00 Test Item Value Reference Range Interpretation Comments RBC (test code = RBC) 4.50 4.20-5.40 [facility]NgrhwmrSZUJRORKOM4510-72-57 01:26:00 Test Item Value Reference Range Interpretation Comments Hgb (test code = Hgb) 12.3 12.0-16.0 [facility] Hos[id number] 01:26:00 Test Item Value Reference Range Interpretation Comments Hct (test code = Hct) 37.9 36.0-48.0 [facility]Ad[facility] OIOVJZN1707-29-78 07:46:00 Test Item Value Reference Range Interpretation Comments Troponin-I (test code no gt See_Comment [Auto mated message] The = Troponin-I) system which g enerated this result transmit lai reference range : <=0.40. The reference r andres was not used to interpr et this result as sam l/abnormal. [facility] CenterMelody Management [id number] 06:05:00 Test Item Value Reference Range Interpretation Comments BNP (test code = BNP) 2 [facility] PDVWWJR2082-65-26 06:05:00 Test Item Value Reference Range Interpretation Comments Troponin-I (test code no gt See_Comment [Auto mated message] The = Troponin-I) system which g enerated this result transmit lai reference range : <=0.40. The reference r andres was not used to interpr et this result as sam l/abnormal. [facility] [employer] ([employer])2019-01-23 06:05:00 Test Item Value Reference Range Interpretation Comments eGFR (test code = eGFR) 112 [facility] [employer] [id number] 06:05:00 Test Item Value Reference Range Interpretation Comments BUN (test code = BUN) 10 7-22 [id number] 06:05:00 Test Item Value Reference Range Interpretation Comments Creatinine Lvl (test code = Creatinine 0.73 0.50-1.40 Lvl) [facility] [employer] ([employer])2019-01-23 06:05:00 Test Item Value Reference Range Interpretation Comments Glucose Lvl (test code = Glucose Lvl) 85 70-99 [facility] [id number] 06:05:00 Test Item Value Reference Range Interpretation Comments Calcium Lvl (test code = Calcium Lvl) 8.9 8.5-10.5 [facility]2019-01-23 06:05:00 Test Item Value Reference Range Interpretation Comments CO2 (test code = CO2) 28 24-32 [facility]2019-01-23 06:05:00 Test Item Value Reference Range Interpretation Comments Sodium Lvl (test code = Sodium Lvl) 140 135-145 [facility]2019-01-23 06:05:00 Test Item Value Reference Range Interpretation Comments Chloride Lvl (test code = Chloride Lvl) 105 95-109 [facility]2019-01-23 06:05:00 Test Item Value Reference Range Interpretation Comments Potassium Lvl (test code = Potassium 4.0 3.5-5.1 Lvl) [facility]2019-01-23 06:05:00 Test Item Value Reference Range Interpretation Comments AGAP (test code = AGAP) 11.0 10.0-20.0 [place] [id number] 06:05:00 Test Item Value Reference Range Interpretation Comments S Preg (test code = S Negative *NA*(08/29/18 Preg) 12:05 AM) [id number] 06:05:00 Test Item Value Reference Range Interpretation Comments RDW (test code = RDW) 13.8 11.5-14.5 [facility] Ho[id number] 06:05:00 Test Item Value Reference Range Interpretation Comments MCHC (test code = MCHC) 32.9 32.0-36.0 [facility] HospitalAtrdeaxXNGGBVHSBZ4555-86-10 06:05:00 Test Item Value Reference Range Interpretation Comments MPV (test code = MPV) 9.3 7.4-10.4 [facility] H[id number] 06:05:00 Test Item Value Reference Range Interpretation Comments Platelet (test code = Platelet) 332 133-450 [facility] HospitalUhyjjljKONTYNYYJM3304-18-24 06:05:00 Test Item Value Reference Range Interpretation Comments MCH (test code = MCH) 27.6 pg 27.0-31.0 [facility] HospitalErmqwstNUCYYHIUIY1579-86-83 06:05:00 Test Item Value Reference Range Interpretation Comments Hct (test code = Hct) 37.7 36.0-48.0 [facility] H[id number] 06:05:00 Test Item Value Reference Range Interpretation Comments Hgb (test code = Hgb) 12.4 12.0-16.0 [facility] HospitalFzdhalxKANRNEQJPF3078-59-04 06:05:00 Test Item Value Reference Range Interpretation Comments RBC (test code = RBC) 4.50 4.20-5.40 [facility] HospitalNrgwebqWRURSVGGFJ6265-88-53 06:05:00 Test Item Value Reference Range Interpretation Comments MCV (test code = MCV) 83.8 80.0-98.0 [facility] HospitalKvysfggYECEWSIXOW4640-44-94 06:05:00 Test Item Value Reference Range Interpretation Comments WBC (test code = WBC) 12.4 3.7-10.4 [facility] HospitalGnxusfuFCCNVXRPFI8233-47-87 06:05:00 Test Item Value Reference Range Interpretation Comments Lymphocytes (test code = Lymphocytes) 33.2 20.0-40.0 [facility] HospitalGfubqomJMZDZKGSGJ0243-61-04 06:05:00 Test Item Value Reference Range Interpretation Comments Segs (test code = Segs) 58.6 45.0-75.0 [facility] HospitalKjazlkyUNNJHEFOBA9557-84-75 06:05:00 Test Item Value Reference Range Interpretation Comments Basophils # (test code 0.1 See_Comment [Aut omated message] The = Basophils #) system which generated this result tra nsmitted reference range : <=0.2. The reference r andres was not used to int erpret this result as normal/abnormal . [facility] HospitalAiruoejVMRIVPMTAR9980-26-26 06:05:00 Test Item Value Reference Range Interpretation Comments Eosinophils # (test code 0.3 See_Comment [A utomated message] The = Eosinophils #) system whic h generated this result tra nsmitted reference range : <=0.5. The reference r andres was not used to int erpret this result as normal/abnormal . [facility] Hospit[id number] 06:05:00 Test Item Value Reference Range Interpretation Comments Monocytes # (test code 0.7 See_Comment [Aut omated message] The = Monocytes #) system which generated this result tra nsmitted reference range : <=0.8. The reference r andres was not used to int erpret this result as normal/abnormal . [facility] HospitalAsfjgwyCQXQTGPPVS3826-52-81 06:05:00 Test Item Value Reference Range Interpretation Comments Lymphocytes # (test code = Lymphocytes 4.1 1.0-5.5 #) [facility] HospitalXewniygWRXIMCAKNC4351-53-13 06:05:00 Test Item Value Reference Range Interpretation Comments Neutrophils # (test code = Neutrophils 7.3 1.5-8.1 #) [facility] HospitalXzythhhMJHSDTFTSG6641-08-18 06:05:00 Test Item Value Reference Range Interpretation Comments Basophils (test code = 0.5 See_Comment [Aut omated message] The Basophils) system which ge nerated this result tra nsmitted reference range : <=1.0. The reference r andres was not used to int erpret this result as normal/abnormal . [facility] HospitalTxetxokJNUPZTLYLZ3553-19-26 06:05:00 Test Item Value Reference Range Interpretation Comments Eosinophils (test code = 2.4 See_Comment [A utomated message] The Eosinophils) system which ge nerated this result tra nsmitted reference range : <=4.0. The reference r andres was not used to int erpret this result as normal/abnormal . [facility] HospitalIlmlzanHTLMUHBAXK1307-44-86 06:05:00 Test Item Value Reference Range Interpretation Comments Monocytes (test code = Monocytes) 5.3 2.0-12.0 [facility] HospitalKdxnsygQXWLZYHPGF8533-08-45 06:05:00 Test Item Value Reference Range Interpretation Comments D-Dimer (test code = D-Dimer) no gt Vinnie BruceRAD, FOOT, MIN 3 VIEWS, [id number] 09:20:00Reason for exam:- >FOOT INJURYFINAL REPORT RAD, FOOT, MIN 3 VIEWS, LEFT CLINICAL INDICATION: FOOT INJURY COMPARISON: None FINDINGS: Frontal, oblique and lateral views of the left foot. No fracture is identified. The joint spaces appear preserved. Surrounding soft tissues are unremarkable. IMPRESSION: No acute abnormality of the left foot. Signed: JR Hernadez Robert MDReport Verified Date/Time: 07/06/2018 09:20:50 Reading Location: [facility] Radiology Reading Room BLOOD TYPING, [id number] 23:39:00 Test Item Value Reference Range Interpretation Comments ABO/RH AUTOMATED (BEAKER) (test code = O Pos 2260) HCG, QUANTITATIVE, [id number] 23:39:00 Test Item Value Reference Range Interpretation Comments GONADOTROPIN, CHORIONIC (HCG) QUANT < mIU/mL 0-10 (BEAKER) (test code = 649) Non- Females: <10 mIU/mL Females: Gestation Age Reference Range(mIU/mL) 0.2-1 Week 5-50 1-2 Weeks 50-500 2-3 Weeks 100-5,000 3-4Weeks 500-10,000 4-5 Weeks 1,000-50,000 5-6 Weeks 10,000-100,000 6-8 Weeks 15,000-200,000 2-3 Months 10,000-100,000WET [id number] 23:22:00 Test Item Value Reference Range Interpretation Comments WBC WET PREP Few white blood cells (BEAKER) (test code seen = 528) CLUE CELLS (BEAKER) No clue cells seen (test code = 526) YEAST WET PREP No budding yeast seen (BEAKER) (test code = 530) TRICH WET PREP No Trichomonas seen (BEAKER) (test code = 531) BACT WET PREP Few bacteria seen (BEAKER) (test code = 532) [id number] 19:50:00 Test Item Value Reference Range Interpretation Comments LIPASE (BEAKER) (test code = 749) 13 U/L 8-78 COMPREHENSIVE METABOLIC [id number] 19:50:00 Test Item Value Reference Range Interpretation Comments TOTAL PROTEIN 6.6 gm/dL 6.0-8.5 (BEAKER) (test code = 770) ALBUMIN (BEAKER) 4.1 g/dL 3.5-5.0 (test code = 1145) ALKALINE PHOSPHATASE 84 U/L 30-115 (BEAKER) (test code = 346) BILIRUBIN TOTAL 0.2 mg/dL 0.1-1.3 (BEAKER) (test code = 377) SODIUM (BEAKER) (test 142 meq/L 135-148 code = 381) POTASSIUM (BEAKER) 3.9 meq/L 3.5-5.5 (test code = 379) CHLORIDE (BEAKER) 111 meq/L 98-106 H (test code = 382) CO2 (BEAKER) (test 20 meq/L 20-31 code = 355) BLOOD UREA NITROGEN 7 mg/dL 10-26 L (BEAKER) (test code = 354) CREATININE (BEAKER) 0.71 mg/dL 0.50-1.20 (test code = 358) GLUCOSE RANDOM 88 mg/dL 70-110 (BEAKER) (test code = 652) CALCIUM (BEAKER) 9.2 mg/dL 8.5-10.5 (test code = 697) AST (SGOT) (BEAKER) 8 U/L 5-40 (test code = 353) ALT (SGPT) (BEAKER) 13 U/L 6-50 (test code = 347) EGFR (BEAKER) (test 98 mL/min/1.73 ESTIMA LAI GFR IS code = 1092) sq m NOT ACCURATE CREATININE CLEARANCE IN PREDICTING GLOMERULAR FILTRATION RATE . ESTIMATED GFR I S NOT APPLICABLE FOR DIALYSIS PATIEN TS. URINALYSIS W/ REFLEX URINE [id number] 19:28:00 Test Item Value Reference Range Interpretation Comments COLOR (BEAKER) (test code = 470) Red CLARITY (BEAKER) (test code = 469) Cloudy SPECIFIC GRAVITY UA (BEAKER) (test 1.024 1.001-1.035 code = 468) PH UA (BEAKER) (test code = 467) 5.0 5.0-8.0 PROTEIN UA (BEAKER) (test code = 100 mg/dL Negative A 464) GLUCOSE UA (BEAKER) (test code = Negative Negative 365) KETONES UA (BEAKER) (test code = Negative Negative 371) BILIRUBIN UA (BEAKER) (test code = Negative Negative 462) BLOOD UA (BEAKER) (test code = Large Negative A 461) NITRITE UA (BEAKER) (test code = Negative Negative 465) LEUKOCYTE ESTERASE UA (BEAKER) Negative Negative (test code = 466) UROBILINOGEN UA (BEAKER) (test 2.0 mg/dL 0.2-1.0 H code = 463) RBC UA (BEAKER) (test code = 519) 1693 /HPF WBC UA (BEAKER) (test code = 520) 10 /HPF BACTERIA (BEAKER) (test code = Occasional 517) MUCUS (BEAKER) (test code = 1574) Many SQUAMOUS EPITHELIAL (BEAKER) (test 8 /HPF code = 516) SOURCE(BEAKER) (test code = 2795) CBC W/PLT COUNT & AUTO [id number] 19:25:00 Test Item Value Reference Range Interpretation Comments WHITE BLOOD CELL COUNT (BEAKER) 13.7 K/ L 4.0-10.0 H (test code = 775) RED BLOOD CELL COUNT (BEAKER) 4.49 M/ L 4.00-5.00 (test code = 761) HEMOGLOBIN (BEAKER) (test code = 12.7 GM/DL 12.0-15.0 410) HEMATOCRIT (BEAKER) (test code = 37.6 % 36.0-45.0 411) MEAN CORPUSCULAR VOLUME (BEAKER) 83.7 fL 82.0-99.0 (test code = 753) MEAN CORPUSCULAR HEMOGLOBIN 28.2 pg 27.0-33.0 (BEAKER) (test code = 751) MEAN CORPUSCULAR HEMOGLOBIN CONC 33.8 GM/DL 32.0-36.0 (BEAKER) (test code = 752) RED CELL DISTRIBUTION WIDTH 13.6 % 12.0-15.0 (BEAKER) (test code = 412) PLATELET COUNT (BEAKER) (test 345 K/CU MM 150-430 code = 756) MEAN PLATELET VOLUME (BEAKER) 9.9 fL 6.5-10.5 (test code = 754) NUCLEATED RED BLOOD CELLS 0 /100 WBC 0-0 (BEAKER) (test code = 413) NEUTROPHILS RELATIVE PERCENT 68 % (BEAKER) (test code = 429) LYMPHOCYTES RELATIVE PERCENT 27 % (BEAKER) (test code = 430) MONOCYTES RELATIVE PERCENT 4 % (BEAKER) (test code = 431) EOSINOPHILS RELATIVE PERCENT 1 % (BEAKER) (test code = 432) BASOPHILS RELATIVE PERCENT 0 % (BEAKER) (test code = 437) NEUTROPHILS ABSOLUTE COUNT 9.30 K/ L 1.80-8.00 H (BEAKER) (test code = 670) LYMPHOCYTES ABSOLUTE COUNT 3.70 K/ L 1.48-4.50 (BEAKER) (test code = 414) MONOCYTES ABSOLUTE COUNT (BEAKER) 0.50 K/ L 0.00-1.30 (test code = 415) EOSINOPHILS ABSOLUTE COUNT 0.20 K/ L 0.00-0.50 (BEAKER) (test code = 416) BASOPHILS ABSOLUTE COUNT (BEAKER) 0.10 K/ L 0.00-0.20 (test code = 417) SCREEN, [id number] 19:24:00 Test Item Value Reference Range Interpretation Comments TEST URINE (BEAKER) (test Negative code = 583) CT, [id number] 02:09:00Reason for exam:->FALLIs the patient ?- >NoWhat is the patient's sedation requirement?->No SedationFINAL REPORT EXAM: CT of the abdomen and pelvis, with contrast CLINICAL HISTORY: Fall. Abdominal tenderness. TECHNIQUE: CT of the abdomen and pelvis was performed with intravenous contrast administration. This exam was performed according to our departmental dose optimization program which includes automated exposure control, adjustment of the mA and/or kV according to patient' s size and/or use of iterative reconstructive technique. COMPARISON: None FINDINGS: LOWER CHEST: Bibasilar mosaic attenuation compatible with air- trapping. Mild right lower lobe dependent atelectasis.LIVER: Within normal limits.BILE DUCTS: Within normal limits.GALL BLADDER: Within normal limits.PANCREAS: Within normal limits.SPLEEN: Within normal limits.ADRENALS: Within normal limits.KIDNEYS/URETERS: Within normal limits. URINARY BLADDER: Within normal limits.REPRODUCTIVE ORGANS: Within normal limits. BOWEL/MESENTERY: No bowel obstruction or abnormal wall thickening. Normal appendix.PERITONEUM/RETROPERITONEUM: No free air, free fluid or fluid collection. VESSELS: Within normal limits. LYMPH NODES: No abdominal or pelvic lymphadenopathy.SOFT TISSUES: Within normal limits.BONES: Within normal limits. IMPRESSION: No CT evidence of acute injury in the abdomen or pelvis. Signed: Mario Dejesus MDReport Verified Date/Time: 10/24/2017 02:09:04 Reading Location: [address] Transitional Reading Room BASIC METABOLIC [id number] 01:06:00 Test Item Value Reference Range Interpretation Comments SODIUM (BEAKER) 142 meq/L 135-148 (test code = 381) POTASSIUM (BEAKER) 4.0 meq/L 3.5-5.5 (test code = 379) CHLORIDE (BEAKER) 107 meq/L 98-106 H (test code = 382) CO2 (BEAKER) (test 24 meq/L 20-31 code = 355) BLOOD UREA NITROGEN 10 mg/dL 10-26 (BEAKER) (test code = 354) CREATININE (BEAKER) 0.76 mg/dL 0.50-1.20 (test code = 358) GLUCOSE RANDOM 89 mg/dL 70-110 (BEAKER) (test code = 652) CALCIUM (BEAKER) 9.4 mg/dL 8.5-10.5 (test code = 697) EGFR (BEAKER) (test 91 mL/min/1.73 ESTIMA LAI GFR IS code = 1092) sq m NOT ACCURATE CREATININE CLEARANCE IN PREDICTING GLOMERULAR FILTRATION RATE . ESTIMATED GFR I S NOT APPLICABLE FOR DIALYSIS PATIEN TS. HCG, SERUM, [id number] 00:59:00 Test Item Value Reference Range Interpretation Comments TEST SERUM (BEAKER) (test Negative code = 584) CBC W/PLT COUNT & AUTO [id number] 00:41:00 Test Item Value Reference Range Interpretation Comments WHITE BLOOD CELL COUNT (BEAKER) 13.6 K/ L 4.0-10.0 H (test code = 775) RED BLOOD CELL COUNT (BEAKER) 4.76 M/ L 4.00-5.00 (test code = 761) HEMOGLOBIN (BEAKER) (test code = 13.0 GM/DL 12.0-15.0 410) HEMATOCRIT (BEAKER) (test code = 39.6 % 36.0-45.0 411) MEAN CORPUSCULAR VOLUME (BEAKER) 83.1 fL 82.0-99.0 (test code = 753) MEAN CORPUSCULAR HEMOGLOBIN 27.3 pg 27.0-33.0 (BEAKER) (test code = 751) MEAN CORPUSCULAR HEMOGLOBIN CONC 32.9 GM/DL 32.0-36.0 (BEAKER) (test code = 752) RED CELL DISTRIBUTION WIDTH 13.8 % 12.0-15.0 (BEAKER) (test code = 412) PLATELET COUNT (BEAKER) (test 392 K/CU MM 150-430 code = 756) MEAN PLATELET VOLUME (BEAKER) 9.9 fL 6.5-10.5 (test code = 754) NUCLEATED RED BLOOD CELLS 0 /100 WBC 0-0 (BEAKER) (test code = 413) NEUTROPHILS RELATIVE PERCENT 59 % (BEAKER) (test code = 429) LYMPHOCYTES RELATIVE PERCENT 33 % (BEAKER) (test code = 430) MONOCYTES RELATIVE PERCENT 4 % (BEAKER) (test code = 431) EOSINOPHILS RELATIVE PERCENT 3 % (BEAKER) (test code = 432) BASOPHILS RELATIVE PERCENT 0 % (BEAKER) (test code = 437) NEUTROPHILS ABSOLUTE COUNT 8.00 K/ L 1.80-8.00 (BEAKER) (test code = 670) LYMPHOCYTES ABSOLUTE COUNT 4.50 K/ L 1.48-4.50 (BEAKER) (test code = 414) MONOCYTES ABSOLUTE COUNT (BEAKER) 0.60 K/ L 0.00-1.30 (test code = 415) EOSINOPHILS ABSOLUTE COUNT 0.50 K/ L 0.00-0.50 (BEAKER) (test code = 416) BASOPHILS ABSOLUTE COUNT (BEAKER) 0.00 K/ L 0.00-0.20 (test code = 417) RAD, ANKLE, MIN 3 VIEWS, [id number] 00:17:00Reason for exam:->FALLFINAL REPORT RAD, ANKLE, MIN 3 VIEWS, RIGHT, RAD, LEG, TIBIA \\T\\ FIBULA, 2 VIEWS, RIGHT CLINICAL INDICATION: "FALL" COMPARISON: None TECHNIQUE: AP oblique and lateral ankle. AP and lateral tibia and fibula. IMPRESSION:No fracture of the tibia or fibula.Congruent ankle mortise.No appreciable soft tissue swelling.Mild plantar calcaneal spurring. Signed: Evonne Leon MDReport Verified Date/Time: 10/24/2017 00:17:00 Reading Location: [address] Reading Room RAD, LEG, [id number] 00:17:00Reason for exam:->FALLFINAL REPORT RAD, ANKLE, MIN 3 VIEWS, RIGHT, RAD, LEG, TIBIA \\T\\ FIBULA, 2 VIEWS, RIGHT CLINICAL INDICATION: "FALL" COMPARISON: None TECHNIQUE: AP oblique and lateral ankle. AP and lateral tibia and fibula. IMPRESSION:No fracture of the tibia or fibula.Congruent ankle mortise.Noappreciable soft tissue swelling.Mild plantar calcaneal spurring. Signed: Evonne Leon MDReport Verified Date/Time: 10/24/2017 00:17:00 Reading Location: [address] Reading Room RAD, KNEE, COMPLETE (4 VIEWS), [id number] 00:15:00Reason for exam:->FALLFINAL REPORT RAD, KNEE, COMPLETE (4 VIEWS), RIGHT CLINICAL INDICATION: "FALL" COMPARISON: None TECHNIQUE: AP, Oblique and Lateral views were obtained IMPRESSION:No acute fractureor malalignment.Moderate-sized knee joint effusion. Signed: Evonne Leon MDReport Verified Date/Time: 10/24/2017 00:15:06 Reading Location: [address] Reading Room Electronically s igned by: EVONNE LEON MD on 10/24/2017 12:[facility] 05:05:00 Test Item Value Reference Range Interpretation Comments UA Urobilinogen (test code = UA <=1.0 mg/dL 0.1-1.0 Urobilinogen) [facility]2017-12-30 05:05:00 Test Item Value Reference Range Interpretation Comments UA Hyal Cast (test 3 See_Comment [Automat ed message] The code = UA Hyal Cast) system which generated this result transmit lai reference range : <=2. The reference range was not used to interpr et this result as sam l/abnormal. [facility]2017-12-30 05:05:00 Test Item Value Reference Range Interpretation Comments UA Protein (test code = UA Protein) 20 mg/dL [facility] AND [id number] 05:05:00 Test Item Value Reference Range Interpretation Comments UA Glucose (test code = UA Negative mg/dL Glucose) [facility] AND [id number] 05:05:00 Test Item Value Reference Range Interpretation Comments UA Spec Grav (test code = UA Spec Grav) 1.022 [facility]2017-12-30 05:05:00 Test Item Value Reference Range Interpretation Comments UA pH (test code = UA pH) 5.5 5.0-8.0 [facility] AND [id number] 05:05:00 Test Item Value Reference Range Interpretation Comments UA Turbidity (test code Slight *ABN*(08/04/17 = UA Turbidity) 11:05 PM) [facility] AND [id number] 05:05:00 Test Item Value Reference Range Interpretation Comments UA Color (test code = Yellow *NA*(08/04/17 UA Color) 11:05 PM) [facility] AND [id number] 05:05:00 Test Item Value Reference Range Interpretation Comments UA Bacteria (test code = UA Occasional /HPF Bacteria) [facility] AND [id number] 05:05:00 Test Item Value Reference Range Interpretation Comments UA Mucus (test code = UA Mucus) Many /LPF [facility] AND [id number] 05:05:00 Test Item Value Reference Range Interpretation Comments UA WBC (test code = 2 See_Comment [Automa lai message] The UA WBC) system which ge nerated this result transmit lai reference range : <=5. The reference range was not used to interpr et this result as sam l/abnormal. [facility] AND [id number] 05:05:00 Test Item Value Reference Range Interpretation Comments UA RBC (test code = 5 See_Comment [Automa lai message] The UA RBC) system which ge nerated this result transmit lai reference range : <=2. The reference range was not used to interpr et this result as sam l/abnormal. [facility] AND [id number] 05:05:00 Test Item Value Reference Range Interpretation Comments UA Blood (test code = Trace *ABN*(08/04/17 UA Blood) 11:05 PM) [facility] AND [id number] 05:05:00 Test Item Value Reference Range Interpretation Comments UA Nitrite (test code Negative (08/04/17 = UA Nitrite) 11:05 PM) [facility] AND [id number] 05:05:00 Test Item Value Reference Range Interpretation Comments UA Ketones (test code = UA Trace mg/dL Ketones) [facility] AND [id number] 05:05:00 Test Item Value Reference Range Interpretation Comments UA Bili (test code = Negative *NA*(08/04/17 UA Bili) 11:05 PM) [facility] [id number] 05:05:00 Test Item Value Reference Range Interpretation Comments UA Sq Epi (test code = UA Sq Epi) Many /LPF [facility] [id number] 05:05:00 Test Item Value Reference Range Interpretation Comments UA Leuk Est (test Negative (08/04/17 11:05 code = UA Leuk Est) PM) [facility] [id number] 05:05:00 Test Item Value Reference Range Interpretation Comments U Preg (test code = U Negative (08/04/17 11:05 Preg) PM) [facility] [id number] 05:05:00 Test Item Value Reference Range Interpretation Comments Influ B (test code = Negative (08/04/17 11:05 Influ B) PM) [facility] [id number] 05:05:00 Test Item Value Reference Range Interpretation Comments Influ A (test code = Negative (08/04/17 11:05 Influ A) PM) [facility] [id number] 00:10:00 Test Item Value Reference Range Interpretation Comments UA Color (test code = Yellow *NA*(02/22/17 UA Color) 7:10 PM) [facility] [id number] 00:10:00 Test Item Value Reference Range Interpretation Comments UA Urobilinogen (test code = UA 2.0 0.1-1.0 Urobilinogen) [facility] [id number] 00:10:00 Test Item Value Reference Range Interpretation Comments UA Nitrite (test code Positive *ABN*(02/22/17 = UA Nitrite) 7:10 PM) [facility] [id number] 00:10:00 Test Item Value Reference Range Interpretation Comments UA Mucus (test code = UA Mucus) Moderate /LPF [facility] [id number] 00:10:00 Test Item Value Reference Range Interpretation Comments UA Bacteria (test code = UA Moderate /HPF Bacteria) [facility] [id number] 00:10:00 Test Item Value Reference Range Interpretation Comments UA WBC (test code = UA WBC) 0-2 /HPF [facility] [id number] 00:10:00 Test Item Value Reference Range Interpretation Comments UA RBC (test code = 0-2 /HPF See_Comment [Automa lai message] The UA RBC) system which ge nerated this result tra nsmitted reference range : <=2. The reference range was not used to interpr et this result as sam l/abnormal. [facility] AND [id number] 00:10:00 Test Item Value Reference Range Interpretation Comments UA Leuk Est (test Negative (02/22/17 7:10 code = UA Leuk Est) PM) [facility] AND [id number] 00:10:00 Test Item Value Reference Range Interpretation Comments UA Sq Epi (test code = UA Sq Moderate /LPF Epi) [facility] AND [id number] 00:10:00 Test Item Value Reference Range Interpretation Comments UA Bili (test code = Negative *NA*(02/22/17 UA Bili) 7:10 PM) [facility] AND [id number] 00:10:00 Test Item Value Reference Range Interpretation Comments UA Ketones (test code = Trace *ABN*(02/22/17 UA Ketones) 7:10 PM) [facility] AND [id number] 00:10:00 Test Item Value Reference Range Interpretation Comments UA Glucose (test code Negative (02/22/17 7:10 = UA Glucose) PM) [facility] AND [id number] 00:10:00 Test Item Value Reference Range Interpretation Comments UA Blood (test code = Trace *ABN*(02/22/17 UA Blood) 7:10 PM) [facility] AND [id number] 00:10:00 Test Item Value Reference Range Interpretation Comments UA Protein (test code Negative (02/22/17 7:10 = UA Protein) PM) [facility] AND [id number] 00:10:00 Test Item Value Reference Range Interpretation Comments UA Turbidity (test code = Clear (02/22/17 7:10 UA Turbidity) PM) [facility] AND [id number] 00:10:00 Test Item Value Reference Range Interpretation Comments UA Spec Grav (test code = UA Spec 1.020 1 Grav) [facility] AND [id number] 00:10:00 Test Item Value Reference Range Interpretation Comments UA pH (test code = UA pH) 7.0 1 5.0-8.0 [facility]2017-07-19 23:59:00 Test Item Value Reference Range Interpretation Comments Globulin (test code = Globulin) 3.3 2.7-4.2 [facility]2017-07-19 23:59:00 Test Item Value Reference Range Interpretation Comments B/C Ratio (test code = B/C Ratio) 19 6-25 [facility]2017-07-19 23:59:00 Test Item Value Reference Range Interpretation Comments A/G Ratio (test code = A/G Ratio) 1.1 0.7-1.6 [facility]2017-07-19 23:59:00 Test Item Value Reference Range Interpretation Comments AGAP (test code = AGAP) 13.8 10.0-20.0 [facility]2017-07-19 23:59:00 Test Item Value Reference Range Interpretation Comments eGFR (test code = eGFR) 122 [facility]2017-07-19 23:59:00 Test Item Value Reference Range Interpretation Comments Bili Total (test code = Bili Total) 0.3 0.2-1.3 [facility]2017-07-19 23:59:00 Test Item Value Reference Range Interpretation Comments Alk Phos (test code = Alk Phos) 81 39-136 [facility]2017-07-19 23:59:00 Test Item Value Reference Range Interpretation Comments Creatinine Lvl (test code = Creatinine 0.64 0.50-1.40 Lvl) [facility]2017-07-19 23:59:00 Test Item Value Reference Range Interpretation Comments Total Protein (test code = Total 7.0 6.4-8.4 Protein) [facility]2017-07-19 23:59:00 Test Item Value Reference Range Interpretation Comments AST (test code = AST) 14 See_Comment [Auto mated message] The system which ge nerated this result transmit lai reference range : <=37. The reference range was not used to interpr et this result as sam l/abnormal. [facility]2017-07-19 23:59:00 Test Item Value Reference Range Interpretation Comments ALT (test code = ALT) 20 See_Comment [Auto mated message] The system which ge nerated this result transmit lai reference range : <=65. The reference range was not used to interpr et this result as sam l/abnormal. [facility]2017-07-19 23:59:00 Test Item Value Reference Range Interpretation Comments Calcium Lvl (test code = Calcium Lvl) 8.9 8.5-10.5 [facility]2017-07-19 23:59:00 Test Item Value Reference Range Interpretation Comments Chloride Lvl (test code = Chloride Lvl) 109 95-109 [facility]2017-07-19 23:59:00 Test Item Value Reference Range Interpretation Comments Potassium Lvl (test code = Potassium 3.8 3.5-5.1 Lvl) [facility]2017-07-19 23:59:00 Test Item Value Reference Range Interpretation Comments Sodium Lvl (test code = Sodium Lvl) 144 135-145 [facility]2017-07-19 23:59:00 Test Item Value Reference Range Interpretation Comments BUN (test code = BUN) 12 7-22 [facility]2017-07-19 23:59:00 Test Item Value Reference Range Interpretation Comments Glucose Lvl (test code = Glucose Lvl) 94 70-99 [facility]2017-07-19 23:59:00 Test Item Value Reference Range Interpretation Comments CO2 (test code = CO2) 25 24-32 [facility]2017-07-19 23:59:00 Test Item Value Reference Range Interpretation Comments Albumin Lvl (test code = Albumin Lvl) 3.7 3.5-5.0 [facility]2017-07-19 23:59:00 Test Item Value Reference Range Interpretation Comments Lipase Lvl (test code = Lipase Lvl) 102 73-393 [facility]dsqepdPYWFLLIIMROQE5940-24-34 23:59:00 Test Item Value Reference Range Interpretation Comments S Preg (test code = S Negative *NA*(02/22/17 Preg) 6:59 PM) [facility]GS[facility]FG2713-35-20 23:59:00 Test Item Value Reference Range Interpretation Comments Lymphocytes (test code = Lymphocytes) 23.2 20.0-40.0 [facility]WgcjwwjBFAWTYTPUL1736-04-84 23:59:00 Test Item Value Reference Range Interpretation Comments Eosinophils (test code = 3.1 See_Comment [A utomated message] The Eosinophils) system which ge nerated this result tra nsmitted reference range : <=4.0. The reference r andres was not used to int erpret this result as normal/abnormal . [facility] HospitalTgucrwcWZEJGGNVMU0470-28-76 23:59:00 Test Item Value Reference Range Interpretation Comments Monocytes (test code = Monocytes) 5.0 2.0-12.0 [facility]JjjgjmjDKAJIMONEG4604-68-01 23:59:00 Test Item Value Reference Range Interpretation Comments Basophils # (test code 0.2 See_Comment [Aut omated message] The = Basophils #) system which generated this result tra nsmitted reference range : <=0.2. The reference r nadres was not used to int erpret this result as normal/abnormal . [facility] HospitalNkporfsEHCZNYITCY1943-25-57 23:59:00 Test Item Value Reference Range Interpretation Comments Eosinophils # (test code 0.4 See_Comment [A utomated message] The = Eosinophils #) system whic h generated this result tra nsmitted reference range : <=0.5. The reference r andres was not used to int erpret this result as normal/abnormal . [facility] HospitalMbzpqaaBJIEUKSAKN7043-02-22 23:59:00 Test Item Value Reference Range Interpretation Comments Segs (test code = Segs) 66.7 45.0-75.0 [facility] HospitalTmtqdctFDBZNCAQHS8243-85-50 23:59:00 Test Item Value Reference Range Interpretation Comments Basophils (test code = 2.0 See_Comment [Aut omated message] The Basophils) system which ge nerated this result tra nsmitted reference range : <=1.0. The reference r andres was not used to int erpret this result as normal/abnormal . [facility] HospitalHkqcmsdMIUPQOIPPH5153-00-92 23:59:00 Test Item Value Reference Range Interpretation Comments Monocytes # (test code 0.6 See_Comment [Aut omated message] The = Monocytes #) system which generated this result tra nsmitted reference range : <=0.8. The reference r andres was not used to int erpret this result as normal/abnormal . [facility] HospitalFkuvbmnYZPDQVJSKR4799-45-82 23:59:00 Test Item Value Reference Range Interpretation Comments Lymphocytes # (test code = Lymphocytes 2.8 1.0-5.5 #) [facility] Hospit[id number] 23:59:00 Test Item Value Reference Range Interpretation Comments Segs-Bands # (test code = Segs-Bands #) 7.9 1.5-8.1 [facility] HospitalRsuseotKZDMYHAGJG6901-66-92 23:59:00 Test Item Value Reference Range Interpretation Comments RDW (test code = RDW) 12.1 11.5-14.5 [facility] HospitalKuixdslLATDWPORCF7824-13-23 23:59:00 Test Item Value Reference Range Interpretation Comments MCHC (test code = MCHC) 33.8 32.0-36.0 [facility] HospitalZjhefxnTLDOFOXNQI6941-69-08 23:59:00 Test Item Value Reference Range Interpretation Comments MPV (test code = MPV) 9.9 7.4-10.4 [facility] HospitalWnrcfvvMVHSSMNECT3940-73-91 23:59:00 Test Item Value Reference Range Interpretation Comments Platelet (test code = Platelet) 259 133-450 [facility] HospitalEdiuukxWMRYDRZGAO2349-08-80 23:59:00 Test Item Value Reference Range Interpretation Comments MCH (test code = MCH) 28.0 pg 27.0-31.0 [facility] HospitalZqrjaadFFOZDXSVUP8890-54-87 23:59:00 Test Item Value Reference Range Interpretation Comments Hct (test code = Hct) 37.8 36.0-48.0 [facility] HospitalYqarayxAIYOXHISNR4965-63-51 23:59:00 Test Item Value Reference Range Interpretation Comments MCV (test code = MCV) 82.8 80.0-98.0 [facility] HospitalZulzklkJIKHOZKJME6397-09-46 23:59:00 Test Item Value Reference Range Interpretation Comments Hgb (test code = Hgb) 12.8 12.0-16.0 [facility] HospitalVvhdtwnUAFTRNUXAV5600-11-29 23:59:00 Test Item Value Reference Range Interpretation Comments RBC (test code = RBC) 4.57 4.20-5.40 [facility] HospitalNcujhniXINCQNUAAN4280-71-32 23:59:00 Test Item Value Reference Range Interpretation Comments WBC (test code = WBC) 11.9 3.7-10.4 [facility] VFAHZPG5117-91-43 18:00:00 Test Item Value Reference Range Interpretation Comments ABO/Rh (test code = ABO/Rh) [facility] LTMWQZF0893-56-12 18:00:00 Test Item Value Reference Range Interpretation Comments Antibody Scrn (test Negative (11/04/16 1:00 code = Antibody Scrn) PM) [facility]EjdguodDNHREJZTFSPLS3497-09-46 18:00:00 Test Item Value Reference Range Interpretation Comments S Preg (test code = S Negative *NA*(11/04/16 Preg) 1:00 PM) [facility] HospitalJvkigdjNLMMYJCWUI8184-02-73 18:00:00 Test Item Value Reference Range Interpretation Comments RDW (test code = RDW) 14.4 11.5-14.5 [facility] HospitalGlddcbsZWLVSDONHA7068-49-19 18:00:00 Test Item Value Reference Range Interpretation Comments MCHC (test code = MCHC) 32.7 32.0-36.0 [facility] HospitalMdlyyacMSFDKQEJKF7055-45-07 18:00:00 Test Item Value Reference Range Interpretation Comments Platelet (test code = Platelet) 307 133-450 [facility] HospitalUcvoxhfROOTZFJRMT4775-91-00 18:00:00 Test Item Value Reference Range Interpretation Comments Hct (test code = Hct) 41.1 36.0-48.0 [facility] HospitalMbugcqgKQMQSFNZHN6453-81-30 18:00:00 Test Item Value Reference Range Interpretation Comments MCV (test code = MCV) 81.9 80.0-98.0 [facility] HospitalWgeoosbYLBBBQJHPJ3192-33-25 18:00:00 Test Item Value Reference Range Interpretation Comments MCH (test code = MCH) 26.8 pg 27.0-31.0 [facility] HospitalLiuqrhrFJWBLMDDGZ4626-53-46 18:00:00 Test Item Value Reference Range Interpretation Comments MPV (test code = MPV) 9.2 7.4-10.4 [facility] HospitalUihogcgUBQZYVWHOK0736-24-95 18:00:00 Test Item Value Reference Range Interpretation Comments RBC (test code = RBC) 5.02 4.20-5.40 [facility] HospitalJhpetsiHKRHHVZTNF5217-45-81 18:00:00 Test Item Value Reference Range Interpretation Comments WBC (test code = WBC) 11.7 3.7-10.4 [facility] HospitalHsfiysvIUJRAMHOKP0172-14-75 18:00:00 Test Item Value Reference Range Interpretation Comments Hgb (test code = Hgb) 13.4 12.0-16.0 [facility] HospitalKwblndvCITUCUGNXM0234-80-21 18:00:00 Test Item Value Reference Range Interpretation Comments Basophils # (test code 0.1 See_Comment [Aut omated message] The = Basophils #) system which generated this result tra nsmitted reference range : <=0.2. The reference r andres was not used to int erpret this result as normal/abnormal . [facility] HospitalHhepesiXWFQTDITKD8397-77-59 18:00:00 Test Item Value Reference Range Interpretation Comments Eosinophils # (test code 0.3 See_Comment [A utomated message] The = Eosinophils #) system whic h generated this result tra nsmitted reference range : <=0.5. The reference r andres was not used to int erpret this result as normal/abnormal . [facility] HospitalTbidjpoQKCDVBFDPS9140-57-83 18:00:00 Test Item Value Reference Range Interpretation Comments Monocytes # (test code 0.6 See_Comment [Aut omated message] The = Monocytes #) system which generated this result tra nsmitted reference range : <=0.8. The reference r andres was not used to int erpret this result as normal/abnormal . [facility] HospitalWqogpdmYRQDMHAGKS5113-92-54 18:00:00 Test Item Value Reference Range Interpretation Comments Basophils (test code = 0.9 See_Comment [Aut omated message] The Basophils) system which ge nerated this result tra nsmitted reference range : <=1.0. The reference r andres was not used to int erpret this result as normal/abnormal . [facility] HospitalUiazgzpLYNFSWMKBF6294-90-65 18:00:00 Test Item Value Reference Range Interpretation Comments Eosinophils (test code = 2.8 See_Comment [A utomated message] The Eosinophils) system which ge nerated this result tra nsmitted reference range : <=4.0. The reference r andres was not used to int erpret this result as normal/abnormal . [facility] HospitalRhqllqvCGSBASKGQS3393-13-61 18:00:00 Test Item Value Reference Range Interpretation Comments Monocytes (test code = Monocytes) 5.4 2.0-12.0 [facility] HospitalTjsopjeSHKSYYCJJZ6819-32-42 18:00:00 Test Item Value Reference Range Interpretation Comments Lymphocytes # (test code = Lymphocytes 3.6 1.0-5.5 #) [facility] HospitalLqsndfvHDKSSWAONM4569-80-21 18:00:00 Test Item Value Reference Range Interpretation Comments Segs-Bands # (test code = Segs-Bands #) 7.0 1.5-8.1 [facility] HospitalRbmeorbHGUZEPXSTJ1538-10-72 18:00:00 Test Item Value Reference Range Interpretation Comments Lymphocytes (test code = Lymphocytes) 30.7 20.0-40.0 [facility] HospitalXztnyrgIQQNQPYYZJ6362-78-35 18:00:00 Test Item Value Reference Range Interpretation Comments Segs (test code = Segs) 60.2 45.0-75.0 [facility]
[2021-10-17] MEDS ORDERED: NA CHLORIDE 0.9% 1,000 ML ONE ×2 (01:58→03:55)
[2021-10-17 03:08] LABS: Absolute Lymphocytes (CBC) 0.9 K/uL (0.7-4.9); Hematocrit 39.4 % (36.0-45.0); Lymphocytes % 12.2 % (15.3-44.8); MPV 9.7 fL (7.6-11.3); RBC Red Blood Cell Count 4.64 M/uL (3.86-4.86)
[2021-10-17 03:22] LABS: Potassium 3.8 mmol/L (3.5-5.1)
[2021-10-17 03:23] LABS: SARS-COV-2 RT PCR NEGATIVE (NEGATIVE)
[2021-10-17] MEDS ORDERED: OSELTAMIVIR 75 MG CAP ONE (03:55)
--- NOTE | 2021-10-17 04:28 | ER ---
Nurse's Notes [facility] Name: Rylie Arevalo Age: 30 yrs Sex: Female : 1990 Arrival Date: 10/17/2021 Time: 01:15 Bed 25 Private MD: Diagnosis: Influenza due to identified novel influenza A virus Presentation: 10/17 01:43 Chief complaint: Patient states: Fever, N/V, Left flank pain that started at 2000 hours tk1 10/16/2021. Coronavirus screen: chills, cough unrelated to allergies, fever, headache, nausea, shaking with chills, vomiting. Ebola Screen: Patient negative for fever greater than or equal to 101.5 degrees Fahrenheit, and additional compatible Ebola Virus Disease symptoms Patient denies exposure to infectious person. Patient denies travel to an Ebola-affected area in the 21 days before illness onset. Initial Sepsis Screen: Does the patient meet any 2 criteria? HR > 90 bpm. No. Patient's initial sepsis screen is negative. Does the patient have a suspected source of infection? No. Patient's initial sepsis screen is negative. Risk Assessment: Do you want to hurt yourself or someone else? Patient reports no desire to harm self or others. Onset of symptoms was October 16, 2021 at 20:00. 01:43 Method Of Arrival: Ambulatory tk1 01:43 Acuity: CHUCK 3 tk1 Triage Assessment: 01:46 General: Appears distressed, uncomfortable, obese, well developed, well nourished, tk1 Behavior is cooperative, appropriate for age, anxious. Pain: Complains of pain in left low back Pain does not radiate. Pain currently is 10 out of 10 on a pain scale. Quality of pain is described as aching, Pain began 4 hours ago. EENT: No deficits noted. No signs and/or symptoms were reported regarding the EENT system. Neuro: Level of Consciousness is awake, alert, obeys commands, Oriented to person, place, time, Occupational Health And Safety Officer are equal bilaterally Full function Gait is steady, Speech is normal, Facial symmetry appears normal. Cardiovascular: Capillary refill < 3 seconds is brisk in bilateral fingers. Respiratory: Reports cough that is non-productive, persistent Airway is patent Trachea midline Respiratory effort is even, unlabored, Respiratory pattern is regular, symmetrical, Breath sounds are clear bilaterally. GI: Abdomen is round non-distended, Pt is actively vomiting bile, Bowel sounds present X 4 quads. Abd is soft X 4 quads. : No deficits noted. No signs and/or symptoms were reported regarding the genitourinary system. Derm: No deficits noted. No signs and/or symptoms reported regarding the dermatologic system. Musculoskeletal: No deficits noted. No signs and/or symptoms reported regarding the musculoskeletal system. 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 - Social history:: Smoking status: Patient reports the use of cigarette tobacco products, smokes one pack cigarettes per day. - Family history:: not pertinent. - Hospitalizations: : No recent hospitalization is reported. Screenin:56 Abuse screen: Denies threats or abuse. Denies injuries from another. Nutritional tk1 screening: No deficits noted. Tuberculosis screening: No symptoms or risk factors identified. Fall Risk None identified. Assessment: 01:52 Reassessment: See triage assessment. tk1 03:00 Reassessment: No changes from previously documented assessment. Patient and/or family tk1 updated on plan of care and expected duration. Pain level reassessed. Patient is alert, oriented x 3, equal unlabored respirations, skin warm/dry/pink. 04:57 Reassessment: No changes from previously documented assessment. Patient and/or family tk1 updated on plan of care and expected duration. Pain level reassessed. Patient is alert, oriented x 3, equal unlabored respirations, skin warm/dry/pink. Patient denies pain at this time. 05:06 Reassessment: D/C per MD order. Discharge/Prescription instructions given to patient tk1 and SO. Verbalized understanding. Vital Signs: 01:43 BP 122 / 81 RA Supine (auto/reg); Pulse 105 MON; Resp 20; Pulse Ox 99% on R/A; Weight tk1 111.13 kg; Height 5 ft. 8 in. (172.72 cm) (R); 01:46 BP 112 / 60 RA Supine (auto/reg); Pulse 109 MON; Resp 20 S; Pulse Ox 97% on R/A; Pain tk1 10/10; 03:00 BP 121 / 65 Supine (auto/reg); Pulse 89 MON; Resp 18 S; Temp 98.8(O); Pulse Ox 99% on tk1 R/A; 04:00 BP 117 / 69 LA Supine (auto/reg); Pulse 88 MON; Resp 18 S; Temp 98.2; Pulse Ox 98% on tk1 R/A; 01:43 Body Mass Index 37.25 (111.13 kg, 172.72 cm) tk1 ED Course: 01:15 Patient arrived in ED. wm 01:26 Markie Alva MD is Attending Physician. rn 01:42 Adriana Currie is Primary Nurse. tk1 01:46 Triage completed. tk1 01:46 Arm band placed on right wrist. tk1 01:56 Patient has correct armband on for positive identification. Bed in low position. Call tk1 light in reach. Side rails up X2. Adult w/ patient. Pulse ox on. NIBP on. 01:56 No provider procedures requiring assistance completed. Inserted saline lock: 20 gauge tk1 in right antecubital area, using aseptic technique. Blood collected. 01:59 CBC with Automated Diff Sent. tk1 01:59 Strep Sent. tk1 01:59 COVID-19/FLU A+B (Document "Date of Onset" if Symptomatic) Sent. tk1 01:59 Basic Metabolic Panel Sent. tk1 01:59 Procalcitonin Sent. tk1 01:59 CBC with Diff Sent. tk1 03:28 XRAY Chest (1 view) In Process Unspecified. EDMS 05:06 IV discontinued, intact, bleeding controlled, No redness/swelling at site. Pressure tk1 dressing applied. Administered Medications: 01:56 Drug: NS 0.9% 1000 ml Route: IV; Rate: 1000 ml; Infused Over: 1 hrs; Site: right tk1 antecubital; Delivery: Primary tubing; 05:08 Follow up: Response: No adverse reaction; IV Status: Completed infusion tk1 03:54 Drug: Tamiflu (oseltamivir) 75 mg Route: PO; tk1 05:08 Follow up: Response: No adverse reaction tk1 03:54 Drug: NS 0.9% 1000 ml Route: IV; Rate: 1000 ml; Infused Over: 1 hrs; Site: right tk1 antecubital; Delivery: Primary tubing; 05:08 Follow up: IV Status: Completed infusion; IV Intake: 2000ml tk1 Intake: 05:08 IV: 2000ml; Total: 2000ml. tk1 Outcome: 04:28 Discharge ordered by . rn 05:06 Discharged to home ambulatory, with family. tk1 05:06 Condition: stable 05:06 Discharge instructions given to patient, significant other, Instructed on discharge instructions, follow up and referral plans. medication usage, Demonstrated understanding of instructions, follow-up care, medications, Prescriptions given X 1. 05:08 Patient left the ED. tk1 Signatures: Dispatcher [employer] EDMarkie Burkett MD MD rn Marsh, Adriana Riley tk1 Corrections: (The following items were deleted from the chart) 01:47 01:46 PMHx: Cancer in situ of urinary bladder; tk1 tk1 05:07 04:00 IV discontinued, intact, bleeding controlled, No redness/swelling at site. tk1 Pressure dressing applied, tk1
--- NOTE | 2021-10-17 04:28 | EDPHYS ---
Physician Documentation [facility] Name: Rylie Arevalo Age: 30 yrs Sex: Female : 1990 Arrival Date: 10/17/2021 Time: 01:15 Bed 25 Private MD: ED Physician Markie Alva HPI: 10/17 01:55 This 30 yrs old Female presents to ER via Ambulatory with complaints of Fever. rn 01:55 The patient reports fever, that was measured at 102 degrees Fahrenheit. Onset: The rn symptoms/episode began/occurred today. Modifying factors: The patient has had contact with sick. Associated signs and symptoms: Pertinent positives: chills, cough, diarrhea, headache, myalgias, runny nose, vomiting, Pertinent negatives: altered mental status, hemoptysis, swelling. Severity of symptoms: At their worst the symptoms were moderate in the emergency department the symptoms are unchanged. The patient has not experienced similar symptoms in the past. The patient has not recently seen a physician. 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 - Social history:: Smoking status: Patient reports the use of cigarette tobacco products, smokes one pack cigarettes per day. - Family history:: not pertinent. - Hospitalizations: : No recent hospitalization is reported. 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 Exam: 01:55 Constitutional: This is a well developed, well nourished patient who is awake, alert, rn obvious rigors Head/Face: Normocephalic, atraumatic. Eyes: Pupils equal round and reactive to light, extra-ocular motions intact. Lids and lashes normal. Conjunctiva and sclera are non-icteric and not injected. Cornea within normal limits. Periorbital areas with no swelling, redness, or edema. ENT: dry MM, no stridor Neck: Supple, full range of motion without nuchal rigidity, or vertebral point tenderness. No Meningismus. Cardiovascular: Tachycardic, regular Respiratory: Mild tachypnea. No retractions. Abdomen/GI: Soft, non-tender Skin: Warm, dry, no rash MS/ Extremity: Pulses equal, no cyanosis. Neuro: Awake and alert, GCS 15 Vital Signs: 01:43 BP 122 / 81 RA Supine (auto/reg); Pulse 105 MON; Resp 20; Pulse Ox 99% on R/A; Weight tk1 111.13 kg; Height 5 ft. 8 in. (172.72 cm) (R); 01:46 BP 112 / 60 RA Supine (auto/reg); Pulse 109 MON; Resp 20 S; Pulse Ox 97% on R/A; Pain tk1 1010; 03:00 BP 121 / 65 Supine (auto/reg); Pulse 89 MON; Resp 18 S; Temp 98.8(O); Pulse Ox 99% on tk1 R/A; 04:00 BP 117 / 69 LA Supine (auto/reg); Pulse 88 MON; Resp 18 S; Temp 98.2; Pulse Ox 98% on tk1 R/A; 01:43 Body Mass Index 37.25 (111.13 kg, 172.72 cm) tk1 MDM: 01:26 Patient medically screened. rn 03:49 Differential diagnosis: viral Infection, bacterial infection, URI, bronchitis, rn pneumonia. Data reviewed: vital signs, nurses notes, lab test result(s), radiologic studies, plain films, and as a result, I will discharge patient. Counseling: I had a detailed discussion with the patient and/or guardian regarding: the historical points, exam findings, and any diagnostic results supporting the discharge/admit diagnosis, lab results, radiology results, the need for outpatient follow up, to return to the emergency department if symptoms worsen or persist or if there are any questions or concerns that arise at home. Response to treatment: the patient's symptoms have mildly improved after treatment, and as a result, I will discharge patient. 04:27 Special discussion: I discussed with the patient/guardian in detail that at this point rn there is no indication for admission to the hospital. It is understood, however, that if the symptoms persist or worsen the patient needs to return immediately for re-evaluation. Based on the history and exam findings, there is no indication for further emergent testing or inpatient evaluation. I discussed with the patient/guardian the need to see the primary care provider for further evaluation of the symptoms. 10/17 01:35 Order name: CBC with Diff rn 10/17 01:35 Order name: Basic Metabolic Panel; Complete Time: 03:44 rn 10/17 01:35 Order name: Procalcitonin; Complete Time: 03:44 rn 10/17 01:35 Order name: COVID-19/FLU A+B (Document "Date of Onset" if Symptomatic); Complete Time: rn 03:44 10/17 01:35 Order name: Strep; Complete Time: 03:44 rn 10/17 01:35 Order name: XRAY Chest (1 view) rn 10/17 01:35 Order name: IV Start; Complete Time: 01:59 rn 10/17 01:36 Order name: CBC with Automated Diff; Complete Time: 03:44 EDMS 10/17 03:20 Order name: Throat Culture EDMS Administered Medications: 01:56 Drug: NS 0.9% 1000 ml Route: IV; Rate: 1000 ml; Infused Over: 1 hrs; Site: right tk1 antecubital; Delivery: Primary tubing; 05:08 Follow up: Response: No adverse reaction; IV Status: Completed infusion tk1 03:54 Drug: Tamiflu (oseltamivir) 75 mg Route: PO; tk1 05:08 Follow up: Response: No adverse reaction tk1 03:54 Drug: NS 0.9% 1000 ml Route: IV; Rate: 1000 ml; Infused Over: 1 hrs; Site: right tk1 antecubital; Delivery: Primary tubing; 05:08 Follow up: IV Status: Completed infusion; IV Intake: 2000ml tk1 Disposition Summary: 10/17/21 04:28 Discharge Ordered Location: Home rn Problem: new rn Symptoms: have improved rn Condition: Stable rn Diagnosis - Influenza due to identified novel influenza A virus rn Followup: rn - With: Private Physician - When: As needed - Reason: Recheck today's complaints, Re-evaluation by your physician Discharge Instructions: - Discharge Summary Sheet rn - Influenza, Adult, [id number] rn Forms: - Medication Reconciliation Form rn - Thank You Letter rn - Antibiotic rn outpatient surgery - Prescription Opioid Use rn Prescriptions: - Tamiflu 75 mg Oral Capsule - take 1 tablet by ORAL route every 12 hours for 5 days; 10 tablet; Refills: 0, rn Product Selection Permitted Signatures: Dispatcher [employer] Markie Louie MD MD rn Kirby, Tammie tk1 Corrections: (The following items were deleted from the chart) 01:47 01:46 PMHx: Cancer in situ of urinary bladder; tk1 tk1 04:17 01:35 Urine Dipstick-Ancillary ordered. rn tk1
[2021-10-17 06:16] VITALS: BP 117/69; TEMP 98.2; O2SAT 98
--- NOTE | 2021-10-18 13:39 | RAD REPORT ---
EXAM DESCRIPTION: RAD - Chest Single View - 10/17/2021 3:28 am CLINICAL HISTORY: The patient is 30 years old and is Female; COUGH TECHNIQUE: Frontal view of the chest. COMPARISON: No relevant prior studies available. FINDINGS: Lungs: Hazy opacification of the lung bases bilaterally which may be due to atelectasis or airspace disease. Mildly prominent interstitial markings. Pleural space: Unremarkable. No pneumothorax. Heart: Unremarkable. Mediastinum: Unremarkable. Bones/joints: Unremarkable. IMPRESSION: Hazy opacification of the lung bases bilaterally which may be due to atelectasis or airs pace disease. Electronically signed by: Ayan Way MD 10/17/2021 3:38 AM CDT Due to temporary technical issues with the PACS/Fluency reporting system, reports are being signed by the in house radiologist without review as a courtesy to ensure prompt reporting. The interpreting r adiologist is fully responsible for the content of the report.
== END 2021-10-17 05:08 | disposition home or self-care (01) ==
LOC: ER 01:14
DX: J10.1 Influenza due to other identified influenza virus with other respiratory manifestations (principal); Z20.822 Contact with and (suspected) exposure to COVID-19; F17.210 Nicotine dependence, cigarettes, uncomplicated
CPT/HCPCS: 96361; 87070; 85025; 80048; 36415; 87081; 84145; 0240U; 71045; 96360; 99284; J7030 ×2